=== PATIENT | female | born 1965 | race Caucasian/White ===

== ENCOUNTER 2019-11-14 06:04 | Inpatient (IN) ==
--- NOTE | 2019-11-07 10:05 | XRay Report ---
CLINICAL INFORMATION: Preop COMPARISON: None. TECHNIQUE: PA and Lateral views FINDINGS: The heart size, mediastinum and pulmonary vessels are unremarkable. The lungs are clear. There are no effusions. The bones and soft tissues are within normal limits. IMPRESSION: Normal chest. Interpreted and Authenticated by: Marvin Frazier 11/07/19
[2019-11-07 12:30] LABS: Basophils # (Auto) 0.06 K/mcL (0.00-0.30); Basophils % (Auto) 0.6 % (0.0-2.0); Eosinophils # (Auto) 0.09 K/mcL (0.00-0.70); Eosinophils % (Auto) 0.9 % (0.0-7.0); Granulocytes % (Auto) 45.9 % (38.0-78.0); Hematocrit 38.1 % (34.1-44.9); Hemoglobin 12.6 g/dL (11.2-15.7); Lymphocytes # (Auto) 4.43 K/mcL (1.50-4.80); Lymphocytes % (Auto) 46.4 % (15.5-49.0); Mean Cell Volume 85.8 fL (80.0-100.0); Mean Corpuscular HGB Conc 33.1 g/dL (31.0-36.0); Mean Platelet Volume 10.1 fL (7.4-10.4); Monocytes # (Auto) 0.59 K/mcL (0.10-0.90); Monocytes % (Auto) 6.2 % (1.0-12.0); Platelet Count 371 K/mcL (140-440); RBC 4.44 M/mcL (3.59-5.38); Red Cell Distribution Width 13.2 % (11.5-14.5); WBC 9.6 K/mcL (4.50-11.00)
[2019-11-07 12:40] LABS: INR 0.9 (0.9-1.1); Prothrombin Time 12.6 sec (11.9-14.5)
[2019-11-07 12:45] LABS: Estimated Average Glucose(eAG) 209 mg/dL; Hemoglobin A1C 8.9 % HGB (4.0-6.0)
[2019-11-07 13:00] LABS: ALT/SGPT 36 U/l (0-40); AST/SGOT 43 U/l (0-37); Albumin 4.5 gm/dL (3.2-5.2); Albumin/Globulin Ratio 1.6 (1.0-2.3); Alkaline Phosphatase 142 U/L (39-117); Bilirubin,Total 0.2 mg/dL (0.0-1.0); Blood Urea Nitrogen 4 mg/dl (6-20); Calcium 9.4 mg/dl (8.6-10.4); Carbon Dioxide 26 mmol/L (22-30); Chloride 100 mmol/L (96-108); Globulin 2.8 gm/dL (2.2-3.7); Glomerular Filtration Rate 98; Glucose 60 mg/dL (70-105); T4 (Thyroxine) 8.9 ug/dl (5.0-12.0)
[~2019-11-14 06:04] MED LIST: ceFAZolin 2 GM in DEXTROSE 5% IN WATER 50 ML IV SCH
[2019-11-14] MEDS ORDERED: DEXAMETHASONE 10 MG/ML VIAL IV ONE ×2 (07:30→13:30)
[2019-11-14] MEDS ORDERED: SUCCINYLCHOLINE 20 MG/ML ML IV ONE ×2 (07:30→13:30)
[2019-11-14] MEDS ORDERED: PROPOFOL 200 MG/20 ML VIAL IV ONE ×2 (07:30→13:30)
[2019-11-14] MEDS ORDERED: LIDOCAINE HCL/PF 100 MG/5 ML SYRINGE IV ONE ×2 (07:30→13:30)
[2019-11-14] MEDS ORDERED: ONDANSETRON 4 MG/2 ML VIAL IV ONE ×2 (07:30→13:30)
[2019-11-14] MEDS ORDERED: KETAMINE 100 MG/ML ML IV ONE ×2 (07:30→13:30)
[2019-11-14] MEDS ORDERED: ROCURONIUM 10 MG/ML ML IV ONE ×2 (07:30→13:30)
[2019-11-14] MEDS ORDERED: SUGAMMADEX SODIUM 200 MG/2 ML VIAL IV ONE (07:30)
[2019-11-14] MEDS ORDERED: fentaNYL 250 MCG/5 ML VIAL IV ONE (07:30)
[2019-11-14] MEDS ORDERED: IPRATROPIUM/ALBUTEROL 3 ML AMPUL.NEB NEB PRN ×3 (08:08→14:39)
[2019-11-14] MEDS ORDERED: METOPROLOL TARTRATE 5 MG/5 ML VIAL IV PRN ×2 (08:08→09:55)
[2019-11-14] MEDS ORDERED: ePHEDrine 50 MG/ML AMPUL IV PRN ×2 (08:08→09:55)
[2019-11-14] MEDS ORDERED: PROMETHAZINE 25 MG/ML VIAL IM PRN (08:08)
[2019-11-14] MEDS ORDERED: MEPERIDINE 25 MG/ML SYRINGE IV PRN ×3 (08:08→14:39)
[2019-11-14] MEDS ORDERED: ACETAMINOPHEN 1,000 MG/100 ML BOTTLE IV ONE (08:08)
[2019-11-14] MEDS ORDERED: diphenhydrAMINE 50 MG/ML VIAL IV PRN ×2 (08:08→09:55)
[2019-11-14] MEDS ORDERED: ATROPINE SULFATE 0.4 MG/ML VIAL IV PRN ×2 (08:08→09:55)
[2019-11-14] MEDS ORDERED: METHOCARBAMOL 1,000 MG/10 ML VIAL IV PRN ×3 (08:08→14:39)
[2019-11-14] MEDS ORDERED: MEPERIDINE 50 MG/ML INJECTION IM PRN ×2 (08:08→09:55)
[2019-11-14] MEDS ORDERED: NALOXONE HCL 0.4 MG/ML VIAL IV PRN ×3 (08:08→14:39)
[2019-11-14] MEDS ORDERED: PROMETHAZINE 25 MG/ML VIAL IV PRN ×5 (08:08→16:57)
[2019-11-14] MEDS ORDERED: ONDANSETRON 4 MG/2 ML VIAL IV PRN ×2 (08:08→09:55)
[2019-11-14] MEDS ORDERED: KETOROLAC 30 MG/ML VIAL IV PRN ×2 (08:08→09:55)
[2019-11-14] MEDS ORDERED: HYDROmorphone 0.5 MG/0.5 ML SYRINGE IV PRN ×3 (08:08→09:55)
[2019-11-14] MEDS ORDERED: LACTATED RINGERS 1,000 ML IV SCH ×3 (08:15→14:45)
--- NOTE | 2019-11-14 08:57 | Brief Operative Note ---
Date of procedure: 11/14/19 Pre-op diagnosis: cholelithiasis with cholecystitis Post-op diagnosis: other (cholelithiasis with cholecystitis) Procedure: laparoscopic cholecystitis Grafts/Implants: No (billy drain ) Anesthesia: GETA Findings: dilated gallbladder Complications: none Surgeon: Cyn Saldivar Specimens Removed/Pathology: other (gallbladder) Condition: stable Disposition: PACU
[2019-11-14] MEDS ORDERED: CYCLOBENZAPRINE (PP) 10 MG TABLET PO PRN (09:07)
[2019-11-14] MEDS: fentaNYL 100 MCG/2 ML VIAL IV PRN ×3 (09:24→09:38)
[2019-11-14] MEDS ORDERED: ceFAZolin 2 GM in DEXTROSE 5% IN WATER 50 ML IV SCH (09:55)
[2019-11-14] MEDS ORDERED: 0.9 % SODIUM CHLORIDE 1,000 ML IV SCH (09:55)
[2019-11-14] MEDS ORDERED: CYCLOBENZAPRINE 10 MG TABLET PO PRN (09:55)
[2019-11-14] MEDS ORDERED: fentaNYL 100 MCG/2 ML VIAL IV PRN ×2 (09:55→14:39)
[2019-11-14] MEDS ORDERED: INSULIN LISPRO 1 UNIT/0.01 ML UNIT SQ SCH (11:30)
[2019-11-14] MEDS ORDERED: KETOROLAC 30 MG/ML VIAL IV SCH (12:00)
[2019-11-14] MEDS ORDERED: 0.9 % SODIUM CHLORIDE 250 ML IV SCH ×3 (12:45→16:57)
[2019-11-14] MEDS ORDERED: 0.9 % SODIUM CHLORIDE 1,000 ML IV ONE (12:47)
[2019-11-14] MEDS ORDERED: MIDAZOLAM 2 MG/2 ML VIAL IV ONE (13:30)
[2019-11-14] MEDS ORDERED: TRANEXAMIC ACID 1,000 MG/10 ML VIAL IV ONE (13:30)
[2019-11-14] MEDS ORDERED: HETASTARCH 6% 500 ML BAG IV ONE (13:30)
[2019-11-14] MEDS ORDERED: GLYCOPYRROLATE 0.2 MG/ML VIAL IV ONE (13:30)
[2019-11-14] MEDS ORDERED: PHENYLEPHRINE 10 MG/ML VIAL IV ONE (13:30)
[2019-11-14] MEDS ORDERED: fentaNYL 100 MCG/2 ML VIAL IV ONE (13:30)
[2019-11-14] MEDS ORDERED: 0.9 % SODIUM CHLORIDE 10 ML SYRINGE IV SCH (14:00)
--- NOTE | 2019-11-14 14:22 | Brief Operative Note ---
Date of procedure: 11/14/19 Pre-op diagnosis: post operative hemorrhage Post-op diagnosis: other (hemorrhage from cystic artery branch) Procedure: diagnostic laparoscopy with control of postoperative hemorrhage from cystic duct remnant Grafts/Implants: No Anesthesia: GETA Findings: large volume clot in subhepatic space with bleeding from cystic artery stump; no clips on cystic artery but lying free in subhepatic space Complications: other (cystic artery hemorrhage) Surgeon: Cyn Saldivar Estimated blood loss (cc): 250 Specimens Removed/Pathology: none sent Condition: stable Disposition: PACU
[2019-11-14] MEDS ORDERED: BENZOCAINE/MENTHOL 1 LOZENGE PO PRN (14:39)
[2019-11-14] MEDS ORDERED: LACTATED RINGERS 250 ML IV PRN (14:39)
[2019-11-14] MEDS ORDERED: FLUMAZENIL 0.1 MG/ML ML IV PRN (14:39)
--- NOTE | 2019-11-14 14:40 | General Surgery Progress Note ---
Subjective Patient reports: other (patient had persistent hypotension with systolic pressure in 60 range . she responded poorly to bolus of 1000 ccc of ns;. she had large volume of fresh blood via her drain , . advised patient that she needed emergency re-exploration . She was T&C for blood and taken immediately to OR for emergency laparoscopy. ) Narrative: Note initiated : 11/14/19 at 2:35 pm Service Date, if different from initiated Date: [] Patient: Gena Ordoñez 54 y/o F admitted on for Diagnostic Laparoscopy Possible Open. Chief Complaint: [] Objective Temp Pulse Resp BP Pulse Ox 98.1 F 99 H 15 108/59 96 11/14/19 14:28 11/14/19 14:30 11/14/19 14:30 11/14/19 14:30 11/14/19 14:30 - Additional Data Intake & Output - Last 24 hours: Intake & Output 11/12/19 11/13/19 11/14/19 11/15/19 05:59 05:59 05:59 05:59 Intake Total 2500 Output Total 1530 Balance 970 Weight 173 lb 6.4 oz - Labs 11/07/19 09:49 11/07/19 09:49 Assessment and Plan - Time Spent With Patient Total time spent is greater than 50% in coordination of care (as documented) at patient's floor/unit and/or counseling patient:
[2019-11-14 14:41] LABS: Basophils # (Auto) 0.04 K/mcL (0.00-0.30); Basophils % (Auto) 0.3 % (0.0-2.0); Eosinophils # (Auto) 0.03 K/mcL (0.00-0.70); Eosinophils % (Auto) 0.2 % (0.0-7.0); Hematocrit 28.3 % (34.1-44.9); Hemoglobin 9.4 g/dL (11.2-15.7); Lymphocytes # (Auto) 1.52 K/mcL (1.50-4.80); Mean Cell Volume 86.8 fL (80.0-100.0); Mean Corpuscular HGB Conc 33.2 g/dL (31.0-36.0); Mean Platelet Volume 11.3 fL (7.4-10.4); Monocytes # (Auto) 0.69 K/mcL (0.10-0.90); Monocytes % (Auto) 4.5 % (1.0-12.0); Platelet Count 233 K/mcL (140-440); RBC 3.26 M/mcL (3.59-5.38); Red Cell Distribution Width 13.2 % (11.5-14.5); WBC 15.2 K/mcL (4.50-11.00)
[2019-11-14] MEDS ORDERED: ACETAMINOPHEN 1,000 MG/100 ML BOTTLE IV SCH (15:00)
[2019-11-14 17:29] LABS: Hematocrit 23.7 % (34.1-44.9); Hemoglobin 7.6 g/dL (11.2-15.7)
[2019-11-14] MEDS: INSULIN LISPRO 1 UNIT/0.01 ML UNIT SQ SCH ×2 (17:54→21:20)
[2019-11-14] MEDS: HYDROmorphone 0.5 MG/0.5 ML SYRINGE IV PRN (17:55)
[2019-11-14] MEDS: KETOROLAC 30 MG/ML VIAL IV SCH (18:54)
[2019-11-14] MEDS: 0.9 % SODIUM CHLORIDE 1,000 ML IV SCH (21:00)
[2019-11-14] MEDS ORDERED: PREGABALIN 50 MG PO SCH (21:00)
[2019-11-14] MEDS ORDERED: PREGABALIN 25 MG CAPSULE PO SCH (21:00)
[2019-11-14] MEDS: 0.9 % SODIUM CHLORIDE 10 ML SYRINGE IV SCH (21:10)
[2019-11-14] MEDS: PREGABALIN 25 MG CAPSULE PO SCH (21:19)
[2019-11-14] MEDS: ACETAMINOPHEN 1,000 MG/100 ML BOTTLE IV SCH (21:21)
[2019-11-14 23:29] LABS: Hematocrit 29.9 % (34.1-44.9); Hemoglobin 9.9 g/dL (11.2-15.7)
[2019-11-15] MEDS: HYDROmorphone 0.5 MG/0.5 ML SYRINGE IV PRN ×3 (00:16→05:58)
[2019-11-15] MEDS: KETOROLAC 30 MG/ML VIAL IV SCH ×4 (00:17→19:52)
[2019-11-15] MEDS: ACETAMINOPHEN 1,000 MG/100 ML BOTTLE IV SCH ×2 (03:12→09:24)
[2019-11-15] MEDS: 0.9 % SODIUM CHLORIDE 10 ML SYRINGE IV SCH ×3 (05:01→21:15)
[2019-11-15 06:35] LABS: Basophils # (Auto) 0.02 K/mcL (0.00-0.30); Basophils % (Auto) 0.2 % (0.0-2.0); Eosinophils # (Auto) 0.03 K/mcL (0.00-0.70); Eosinophils % (Auto) 0.3 % (0.0-7.0); Hematocrit 29.5 % (34.1-44.9); Hemoglobin 9.8 g/dL (11.2-15.7); Lymphocytes # (Auto) 1.99 K/mcL (1.50-4.80); Lymphocytes % (Auto) 17.8 % (15.5-49.0); Mean Cell Volume 86.8 fL (80.0-100.0); Mean Corpuscular HGB Conc 33.2 g/dL (31.0-36.0); Mean Platelet Volume 9.8 fL (7.4-10.4); Monocytes # (Auto) 0.75 K/mcL (0.10-0.90); Monocytes % (Auto) 6.7 % (1.0-12.0); Platelet Count 210 K/mcL (140-440); Red Cell Distribution Width 13.6 % (11.5-14.5); WBC 11.2 K/mcL (4.50-11.00)
[2019-11-15 07:05] LABS: ALT/SGPT 152 U/l (0-40); AST/SGOT 296 U/l (0-37); Albumin 2.8 gm/dL (3.2-5.2); Alkaline Phosphatase 121 U/L (39-117); Bilirubin,Direct 0.3 mg/dL (0.0-0.3); Carbon Dioxide 23 mmol/L (22-30); Chloride 104 mmol/L (96-108); Glomerular Filtration Rate 103; Glucose 125 mg/dL (70-105); Lactate Dehydrogenase 347 U/L (94-250); Triglycerides 83 mg/dl (<150); Uric Acid 5.1 mg/dL (2.5-8.0)
[2019-11-15 07:08] LABS: Albumin/Globulin Ratio 1.5 (1.0-2.3); Blood Urea Nitrogen 9 mg/dl (6-20); Calcium 7.5 mg/dl (8.6-10.4); Globulin 1.9 gm/dL (2.2-3.7)
[2019-11-15] MEDS: INSULIN LISPRO 1 UNIT/0.01 ML UNIT SQ SCH ×4 (07:35→21:24)
[2019-11-15] MEDS ORDERED: HYDROmorphone 0.5 MG/0.5 ML SYRINGE IV PRN (08:27)
[2019-11-15] MEDS ORDERED: MAGNESIUM SULFATE 4 GM/100 ML BAG IV ONE (09:00)
[2019-11-15] MEDS: PREGABALIN 25 MG CAPSULE PO SCH ×2 (09:21→21:13)
[2019-11-15] MEDS: HYDROmorphone 1 MG/ML SYRINGE IV PRN ×3 (09:48→19:52)
[2019-11-15] MEDS: 0.9 % SODIUM CHLORIDE 1,000 ML IV SCH (10:34)
--- NOTE | 2019-11-15 11:23 | General Surgery Progress Note ---
Subjective Patient reports: feels better, still having pain, pain is less, tolerating liquids well, flatus, no bowel movement, afebrile Narrative: Note initiated : 11/15/19 at 11:21 am Service Date, if different from initiated Date: [] Patient: Gena Ordoñez 54 y/o F admitted on 11/15/19 for Diagnostic Laparoscopy Possible Open. Chief Complaint: [patient is doing well. Her pain is decreased. Hemoglobin has remained stable overnight. CARISSA drainage is bloody but only 160 cc. White blood count 11.2, hemoglobin 9.8, hematocrit 29.5, potassium 4.3 BUN 9, creatinine 0.6, magnesium 1.5, bilirubin 1.] Objective Temp Pulse Resp BP Pulse Ox 96.5 F L 86 16 93/61 93 11/15/19 08:00 11/15/19 08:00 11/15/19 08:00 11/15/19 08:00 11/15/19 08:00 - Additional Data Intake & Output - Last 24 hours: Intake & Output 11/13/19 11/14/19 11/15/19 11/16/19 05:59 05:59 05:59 05:59 Intake Total 6275 2100 Output Total 4890 Balance 1385 2100 Weight 173 lb 6.4 oz - General physical appearance well developed, well nourished, no distress - Eyes PERRL, normal ocular movement - ENT normal pinna, normal nares, normal mucosa, no hearing loss, no congestion - Neck no masses, no bruits, trachea midline, no lymphadenopathy, no venous distension - Respiratory normal expansion, normal respiratory effort, clear to percussion, clear to auscultation - Cardiovascular Cardiovascular exam: Present: normal rate and rhythm, RRR, +S1, +S2. Absent: JVD, tachycardia - Abdomen tender (mild tenderness over operative sites), bowel sounds (present), surgical scars (none), masses (none) - Integumentary no rash, no growths, no abnormal pigmentation - Neurologic normal coordination, normal sensation - Musculoskeletal normal gait, normal posture - Psychiatric oriented to time, oriented to person, oriented to place, speech is normal, memory intact - Labs 11/15/19 05:26 11/15/19 05:26 Diabetes panel 11/15/19 Range/Units 05:26 Sodium 136 (133-145) mmol/L Potassium 4.3 (3.3-5.1) mmol/L Chloride 104 (96-108) mmol/L Carbon Dioxide 23 (22-30) mmol/L BUN 9 (6-20) mg/dl Creatinine 0.6 (0.6-1.1) mg/dl Glucose 125 H (70-105) mg/dL Calcium 7.5 L (8.6-10.4) mg/dl AST 296 H (0-37) U/l ALT 152 H (0-40) U/l Alkaline Phosphatase 121 H (39-117) U/L Total Protein 4.7 L (5.9-8.4) gm/dL Albumin 2.8 L (3.2-5.2) gm/dL Triglycerides 83 (<150) mg/dl Calcium panel 11/15/19 Range/Units 05:26 Calcium 7.5 L (8.6-10.4) mg/dl Phosphorus 3.0 (2.7-4.5) mg/dL Albumin 2.8 L (3.2-5.2) gm/dL Pituitary panel 11/15/19 Range/Units 05:26 Sodium 136 (133-145) mmol/L Potassium 4.3 (3.3-5.1) mmol/L Chloride 104 (96-108) mmol/L Carbon Dioxide 23 (22-30) mmol/L BUN 9 (6-20) mg/dl Creatinine 0.6 (0.6-1.1) mg/dl Glucose 125 H (70-105) mg/dL Calcium 7.5 L (8.6-10.4) mg/dl Adrenal panel 11/15/19 Range/Units 05:26 Sodium 136 (133-145) mmol/L Potassium 4.3 (3.3-5.1) mmol/L Chloride 104 (96-108) mmol/L Carbon Dioxide 23 (22-30) mmol/L BUN 9 (6-20) mg/dl Creatinine 0.6 (0.6-1.1) mg/dl Glucose 125 H (70-105) mg/dL Calcium 7.5 L (8.6-10.4) mg/dl Total Bilirubin 1.0 (0.0-1.0) mg/dL AST 296 H (0-37) U/l ALT 152 H (0-40) U/l Alkaline Phosphatase 121 H (39-117) U/L Total Protein 4.7 L (5.9-8.4) gm/dL Albumin 2.8 L (3.2-5.2) gm/dL Assessment and Plan (1) Cholelithiasis and cholecystitis without obstruction Status: Acute Current Visit: Yes (2) Postoperative hemorrhage Status: Acute Assessment and plan: Hemoglobin has remained stable for the past 12 hours Current Visit: Yes - Time Spent With Patient Total time spent is greater than 50% in coordination of care (as documented) at patient's floor/unit and/or counseling patient:
--- NOTE | 2019-11-15 11:56 | Surgical Pathology Report ---
HISTOLOGY SPECIMEN MICROSCOPIC DIAGNOSIS GALLBLADDER, CHOLECYSTECTOMY: -- CHRONIC CHOLECYSTITIS WITH CHOLELITHIASIS. (RLF:sln) PROCEDURAL IMPRESSION Calculus of bile duct. GROSS DESCRIPTION Received in formalin designated gallbladder, is a purple-rubio gallbladder that measures 10.8 x 4.4 x 2.1 cm. There are multiple metal clips identified, including one on the cystic duct. The mucosa is pink-panchal and velvety and the wall is up to 0.2 cm thick. Within the specimen, there is a 0.3 cm in greatest dimension black stone. It Applications Analyst sections submitted - one cassette. (SCB:sln) Electronically Signed by: Salina Leyva M.D.
[2019-11-15 15:17] LABS: Hematocrit 29.4 % (34.1-44.9)
[2019-11-15] MEDS: CYCLOBENZAPRINE 10 MG TABLET PO PRN (21:19)
[2019-11-16] MEDS: KETOROLAC 30 MG/ML VIAL IV SCH ×4 (00:09→23:10)
[2019-11-16] MEDS: 0.9 % SODIUM CHLORIDE 1,000 ML IV SCH ×2 (02:22→08:32)
[2019-11-16] MEDS: HYDROmorphone 1 MG/ML SYRINGE IV PRN ×4 (02:26→11:34)
[2019-11-16] MEDS: 0.9 % SODIUM CHLORIDE 10 ML SYRINGE IV SCH ×3 (05:49→23:00)
[2019-11-16 06:37] LABS: Basophils # (Auto) 0.04 K/mcL (0.00-0.30); Basophils % (Auto) 0.4 % (0.0-2.0); Eosinophils # (Auto) 0.12 K/mcL (0.00-0.70); Eosinophils % (Auto) 1.3 % (0.0-7.0); Granulocytes % (Auto) 65.3 % (38.0-78.0); Hematocrit 29.2 % (34.1-44.9); Hemoglobin 9.7 g/dL (11.2-15.7); Lymphocytes # (Auto) 2.48 K/mcL (1.50-4.80); Mean Cell Volume 88.2 fL (80.0-100.0); Mean Corpuscular HGB Conc 33.2 g/dL (31.0-36.0); Mean Platelet Volume 10.1 fL (7.4-10.4); Monocytes # (Auto) 0.55 K/mcL (0.10-0.90); Platelet Count 191 K/mcL (140-440); RBC 3.31 M/mcL (3.59-5.38); Red Cell Distribution Width 14.2 % (11.5-14.5); WBC 9.2 K/mcL (4.50-11.00)
[2019-11-16] MEDS: INSULIN LISPRO 1 UNIT/0.01 ML UNIT SQ SCH ×4 (07:34→21:32)
[2019-11-16] MEDS: PREGABALIN 25 MG CAPSULE PO SCH ×2 (08:33→21:06)
[2019-11-16 09:10] LABS: ALT/SGPT 88 U/l (0-40); AST/SGOT 91 U/l (0-37); Albumin 2.8 gm/dL (3.2-5.2); Albumin/Globulin Ratio 1.3 (1.0-2.3); Alkaline Phosphatase 138 U/L (39-117); Bilirubin,Total 0.4 mg/dL (0.0-1.0); Blood Urea Nitrogen 6 mg/dl (6-20); Calcium 7.5 mg/dl (8.6-10.4); Carbon Dioxide 25 mmol/L (22-30); Chloride 102 mmol/L (96-108); Globulin 2.2 gm/dL (2.2-3.7); Glomerular Filtration Rate 103; Glucose 145 mg/dL (70-105); Lactate Dehydrogenase 215 U/L (94-250); Triglycerides 128 mg/dl (<150); Uric Acid 4.8 mg/dL (2.5-8.0)
[2019-11-16 09:12] LABS: Bilirubin,Direct < 0.2 mg/dL (0.0-0.3); Phosphorous 2.3 mg/dL (2.7-4.5)
[2019-11-16] MEDS ORDERED: HYDROmorphone 0.5 MG/0.5 ML SYRINGE IV PRN (11:45)
[2019-11-16] MEDS ORDERED: FUROSEMIDE 40 MG/4 ML VIAL IV ONE (13:33)
--- NOTE | 2019-11-16 13:38 | General Surgery Progress Note ---
Subjective Patient reports: feels better, pain is less, flatus, bowel movement, afebrile Narrative: Note initiated : 11/16/19 at 1:35 pm Service Date, if different from initiated Date: [] Patient: Gena Ordoñez 54 y/o F admitted on 11/15/19 for Diagnostic Laparoscopy Possible Open. Chief Complaint: [patient feels much better. However, she was noted to have low oxygen saturations. When monitored off oxygen. Her saturations are in the 80- 84% range. Examination reveals diffuse rales of her entire lung field sugg esting pulmonary edema. White blood count 9.2, hemoglobin 9.7, hematocrit 29.2] Objective Temp Pulse Resp BP Pulse Ox 98.0 F 118 H 18 98/63 90 11/16/19 08:00 11/16/19 08:00 11/16/19 08:00 11/16/19 08:00 11/16/19 08:00 - Additional Data Intake & Output - Last 24 hours: Intake & Output 11/14/19 11/15/19 11/16/19 11/17/19 05:59 05:59 05:59 05:59 Intake Total 6355 5780 200 Output Total 4890 4030 800 Balance 1465 1750 -600 Weight 173 lb 6.4 oz 174 lb - General physical appearance well developed, well nourished, no distress - Eyes PERRL, normal ocular movement - ENT normal pinna, normal nares, normal mucosa, no hearing loss, no congestion - Neck no masses, no bruits, trachea midline, no lymphadenopathy, no venous distension - Respiratory other (diffuse rales bilaterally) - Cardiovascular Cardiovascular exam: Present: normal rate and rhythm (`) - Abdomen non tender, bowel sounds (present), surgical scars (none), masses (none) - Integumentary no rash, no growths, no abnormal pigmentation - Neurologic normal coordination, normal sensation - Musculoskeletal normal gait, normal posture - Psychiatric oriented to time, oriented to person, oriented to place, speech is normal, me bertha intact - Labs 11/16/19 05:38 11/16/19 07:52 Diabetes panel 11/16/19 Range/Units 07:52 Sodium 138 (133-145) mmol/L Potassium 4.2 (3.3-5.1) mmol/L Chloride 102 (96-108) mmol/L Carbon Dioxide 25 (22-30) mmol/L BUN 6 (6-20) mg/dl Creatinine 0.6 (0.6-1.1) mg/dl Glucose 145 H (70-105) mg/dL Calcium 7.5 L (8.6-10.4) mg/dl AST 91 H (0-37) U/l ALT 88 H (0-40) U/l Alkaline Phosphatase 138 H (39-117) U/L Total Protein 5.0 L (5.9-8.4) gm/dL Albumin 2.8 L (3.2-5.2) gm/dL Triglycerides 128 (<150) mg/dl Calcium panel 11/16/19 Range/Units 07:52 Calcium 7.5 L (8.6-10.4) mg/dl Phosphorus 2.3 L (2.7-4.5) mg/dL Albumin 2.8 L (3.2-5.2) gm/dL Pituitary panel 11/16/19 Range/Units 07:52 Sodium 138 (133-145) mmol/L Potassium 4.2 (3.3-5.1) mmol/L Chloride 102 (96-108) mmol/L Carbon Dioxide 25 (22-30) mmol/L BUN 6 (6-20) mg/dl Creatinine 0.6 (0.6-1.1) mg/dl Glucose 145 H (70-105) mg/dL Calcium 7.5 L (8.6-10.4) mg/dl Adrenal panel 11/16/19 Range/Units 07:52 Sodium 138 (133-145) mmol/L Potassium 4.2 (3.3-5.1) mmol/L Chloride 102 (96-108) mmol/L Carbon Dioxide 25 (22-30) mmol/L BUN 6 (6-20) mg/dl Creatinine 0.6 (0.6-1.1) mg/dl Glucose 145 H (70-105) mg/dL Calcium 7.5 L (8.6-10.4) mg/dl Total Bilirubin 0.4 (0.0-1.0) mg/dL AST 91 H (0-37) U/l ALT 88 H (0-40) U/l Alkaline Phosphatase 138 H (39-117) U/L Total Protein 5.0 L (5.9-8.4) gm/dL Albumin 2.8 L (3.2-5.2) gm/dL Assessment and Plan (1) Cholelithiasis and cholecystitis without obstruction Status: Acute Current Visit: Yes (2) Postoperative hemorrhage Status: Acute Assessment and plan: Hemoglobin has remained stable for the past 12 hours Current Visit: Yes - Time Spent With Patient Total time spent is greater than 50% in coordination of care (as documented) at patient's floor/unit and/or counseling patient:
--- NOTE | 2019-11-16 14:31 | XRay Report ---
HISTORY: Pulmonary edema FINDINGS: There is a thick vertically oriented band of discoid atelectasis medially in the right lower lobe extending from the hilum down to the diaphragm. There is a small band of atelectasis posteriorly and medially in the left lower lobe. These are both new since prior chest x-ray done on 11/07/19. There is no pulmonary edema or pleural effusion. The heart size is normal. There are two spinal electrodes, one in the upper and the other in the lower thoracic spine. IMPRESSION: New onset atelectasis in both lower lobes Interpreted and Authenticated by: Cole Tsai 11/16/19
[2019-11-16] MEDS ORDERED: ACETAMINOPHEN 325 MG TABLET PO PRN (14:56)
[2019-11-16] MEDS: BUTALB/ACETAMINOPHEN/CAFFEINE 1 TABLET PO PRN (16:31)
[2019-11-16] MEDS: CYCLOBENZAPRINE 10 MG TABLET PO PRN (19:37)
[2019-11-16] MEDS: oxyCODONE HCL 5 MG TABLET PO PRN (21:07)
[2019-11-17] MEDS: oxyCODONE HCL 5 MG TABLET PO PRN (03:40)
[2019-11-17] MEDS: KETOROLAC 30 MG/ML VIAL IV SCH ×2 (06:07→12:19)
[2019-11-17] MEDS: 0.9 % SODIUM CHLORIDE 10 ML SYRINGE IV SCH (06:08)
[2019-11-17 06:38] LABS: Basophils # (Auto) 0.03 K/mcL (0.00-0.30); Basophils % (Auto) 0.5 % (0.0-2.0); Eosinophils % (Auto) 3.1 % (0.0-7.0); Granulocytes % (Auto) 54.1 % (38.0-78.0); Hematocrit 30.6 % (34.1-44.9); Lymphocytes # (Auto) 2.27 K/mcL (1.50-4.80); Lymphocytes % (Auto) 35.7 % (15.5-49.0); Mean Cell Volume 89.2 fL (80.0-100.0); Mean Corpuscular HGB Conc 32.7 g/dL (31.0-36.0); Monocytes # (Auto) 0.42 K/mcL (0.10-0.90); Monocytes % (Auto) 6.6 % (1.0-12.0); Platelet Count 210 K/mcL (140-440); RBC 3.43 M/mcL (3.59-5.38); Red Cell Distribution Width 13.9 % (11.5-14.5); WBC 6.4 K/mcL (4.50-11.00)
[2019-11-17] MEDS ORDERED: oxyCODONE HCL 5 MG TABLET PO PRN (07:03)
[2019-11-17 08:19] LABS: ALT/SGPT 74 U/l (0-40); AST/SGOT 76 U/l (0-37); Albumin 2.8 gm/dL (3.2-5.2); Albumin/Globulin Ratio 1.2 (1.0-2.3); Alkaline Phosphatase 195 U/L (39-117); Bilirubin,Total 0.6 mg/dL (0.0-1.0); Blood Urea Nitrogen 6 mg/dl (6-20); Calcium 7.6 mg/dl (8.6-10.4); Carbon Dioxide 29 mmol/L (22-30); Chloride 98 mmol/L (96-108); Globulin 2.4 gm/dL (2.2-3.7); Glomerular Filtration Rate 110; Glucose 164 mg/dL (70-105)
[2019-11-17] MEDS: INSULIN LISPRO 1 UNIT/0.01 ML UNIT SQ SCH ×2 (08:21→12:18)
[2019-11-17] MEDS: PREGABALIN 25 MG CAPSULE PO SCH (08:22)
[2019-11-17] MEDS: BUTALB/ACETAMINOPHEN/CAFFEINE 1 TABLET PO PRN (10:32)
--- NOTE | 2019-11-17 11:44 | Discharge Summary ---
Providers - Providers Patient information: Note initiated : 11/17/19 at 11:44 am Service Date, if different from initiated Date: [] Patient: Gena Ordoñez 54 y/o F admitted on 11/15/19 for Diagnostic Laparoscopy Possible Open. Chief Complaint: [] Date of admission: 11/14/19 Discharge date: 11/17/19 Attending physician: Cyn Saldivar Hospitalization Hospital Course: 54-year-old female with history of cholelithiasis with cholecystitis. She underwent laparoscopic cholecystectomy on 13 November. In the PACU she had decreased in blood pressure which initially responded to increase IV fluids. When she returned to the floor. Her blood pressure was 60 systolic and it was noted that she had increased bright red blood through her CARISSA drains. Her abdomen was also distended. She was given 2 L normal saline and blood was typed and cross. She was taken to the OR and reexplored. At laparoscopy, she was found to have a free bleeding from her cystic duct remnant, even though of 3 clips had been placed previously. The clips were not adequately compressed and it is felt that they simply fell off the remnant. The duct was clipped with 5 clips. The remainder in blood was irrigated and the clot was extracted. The area was monitored for about 10 minutes and no more bleeding was noted. She received 2 units of packed red cells after her hemoglobin returned at 7.4.Hemoglobin has remained stable from 9.4-10 . She did have some atelectasis and hypoxemia on yesterday requiring O2. She was given 40 Lasix and she responded appropriately. Her oxygen saturation is now 95%. She still has some bloody drainage her drain but is otherwise stable. She is clinically stable for discharge home. Discharge diagnosis: cholelithiasis with cholecystitis Secondary discharge diagnosis: Postoperative hemorrhage from cystic duct Remnant. Acute pulmonary congestion with hypoxemia, treated, resolved. Acute blood loss anemia, stable Reason for admission: cholelithiasis with cholecystitis Procedures: laparoscopic cholecystectomy. Diagnostic laparoscopy with control of hemorrhage from cystic duct Pertinent studies/significant findings: None Complications: Postoperative bleeding from cystic duct Exam Temp Pulse Resp BP Pulse Ox 97.5 F 79 18 106/65 96 11/17/19 03:43 11/17/19 03:43 11/17/19 03:43 11/17/19 03:43 11/17/19 03:43 - General physical appearance well developed, well nourished, no distress - Eyes PERRL, normal ocular movement - ENT normal pinna, normal nares, normal mucosa, no hearing loss, no congestion - Head Head exam IM: Present: atraumatic, normocephalic - Neck no masses, no bruits, trachea midline, no lymphadenopathy, no venous distension - Cardiovascular Cardiovascular exam IM: Present: normal rate and rhythm - Respiratory normal expansion, normal respiratory effort, clear to auscultation, other (lungs clear without evidence of rales, rhonchi, wheezes) - Abdomen Abdomen: Present: soft, non tender, bowel sounds Hernia: Present: none - Genitourinary Present: normal external genitalia - Integumentary Present: no rash, no growths, no abnormal pigmentation - Neurologic Present: normal coordination, normal sensation - Musculoskeletal Present: normal gait, normal posture - Psychiatric Present: oriented to time, oriented to person, oriented to place, speech is normal, memory intact Discharge Plan - Patient/Caregiver Discharge Instructions Activity: increase activity as tolerated Diet: Regular Diet Additional Instructions: Have dressings changed in office as needed Prescriptions: RX: Butalb/Acetaminophen/Caffeine [Fioricet] 2 tab PO Q4HP PRN #30 tab PRN Reason: Headache Transmission Status: Pending to [facility] RX: oxyCODONE/APAP [Percocet 5-325 mg] 1 tab PO Q4HP PRN #40 tab PRN Reason: Pain Transmission Status: Received by [facility] - Follow up Plan Follow up with: Cyn Saldivar MD [Physician] - 11/29/19 8:00 am Disposition: Home, Self-Care Plan of Treatment: Dressings may be changed in office as needed Prognosis: Good Rehab Potential: Good I certify that the patient requires SNF services.: No Overall status at discharge: patient is progressing back to baseline Pending Studies Resuscitation Status Full Code Diet Low Fat Diet Start Rocio November 14 0825 Acetaminophen/Butalbital/Caffeine (Fioricet) 2 tab PO Q4HP PRN PRN Reason: Headache Last Admin: 11/17/19 10:32 Dose: 2 tab Documented by: Admin: 11/16/19 16:31 Dose: 2 tab Documented by: LORRAINE Cyclobenzaprine HCl (Flexeril) 10 - 20 mg PO DAILYP PRN PRN Reason: muscle spasm Last Admin: 11/16/19 19:37 Dose: 10 mg Documented by: Admin: 11/15/19 21:19 Dose: 10 mg Documented by: SHARON Diagnostic Test (Pha) (Accu-Chek) 1 each FS [facility]; Protocol Last Admin: 11/17/19 08:21 Dose: 1 each Documented by: Admin: 11/16/19 21:32 Dose: 1 each Documented by: Admin: 11/16/19 16:30 Dose: 1 each Documented by: Admin: 11/16/19 11:13 Dose: 1 each Documented by: Admin: 11/16/19 07:29 Dose: 1 each Documented by: Admin: 11/15/19 21:20 Dose: 1 each Documented by: Admin: 11/15/19 16:42 Dose: 1 each Documented by: Admin: 11/15/19 11:41 Dose: 1 each Documented by: Admin: 11/15/19 07:15 Dose: 1 each Documented by: Admin: 11/14/19 21:09 Dose: 1 each Documented by: Admin: 11/14/19 17:37 Dose: 1 each Documented by: [email or web address] Hydromorphone HCl (Dilaudid) 0.5 - 1 mg IV Q2HP PRN; Protocol PRN Reason: Per Pain Protocol Last Admin: 11/16/19 23:00 Dose: 0.5 mg Documented by: SHARON Insulin Human Lispro (Humalog) 0 unit SQ [facility]; Protocol Last Admin: 11/17/19 08:21 Dose: 2 units Documented by: Admin: 11/16/19 21:32 Dose: Not Given Documented by: Admin: 11/16/19 16:35 Dose: 2 units Documented by: Admin: 11/16/19 11:14 Dose: Not Given Documented by: Admin: 11/16/19 07:34 Dose: 2 units Documented by: Admin: 11/15/19 21:24 Dose: 6 units Documented by: Admin: 11/15/19 17:34 Dose: 6 units Documented by: Admin: 11/15/19 11:42 Dose: Not Given Documented by: Admin: 11/15/19 07:35 Dose: 2 units Documented by: Admin: 11/14/19 21:20 Dose: 6 units Documented by: Admin: 11/14/19 17:54 Dose: 6 units Documented by: [email or web address] Ketorolac Tromethamine (Toradol) 30 mg IV Q6 [facility] Stop: 11/17/19 12:01 Last Admin: 11/17/19 06:07 Dose: 30 mg Documented by: Admin: 11/16/19 23:10 Dose: 30 mg Documented by: Admin: 11/16/19 17:14 Dose: 30 mg Documented by: LORRAINE Oxycodone HCl (Roxicodone) 10 mg PO Q4HP PRN; Protocol PRN Reason: Per Pain Protocol Last Admin: 11/17/19 08:22 Dose: 10 mg Documented by: KEAGAN Pregabalin (Lyrica) 50 mg PO BID [facility] Last Admin: 11/17/19 08:22 Dose: 50 mg Documented by: Admin: 11/16/19 21:06 Dose: 50 mg Documented by: Admin: 11/16/19 08:33 Dose: 50 mg Documented by: Admin: 11/15/19 21:13 Dose: 50 mg Documented by: Admin: 11/15/19 09:21 Dose: 50 mg Documented by: Admin: 11/14/19 21:19 Dose: 50 mg Documented by: SHARON Sodium Chloride (Saline Flush) 10 ml IV Q8 [facility] Last Admin: 11/17/19 06:08 Dose: 10 ml Documented by: Admin: 11/16/19 23:00 Dose: 10 ml Documented by: Admin: 11/16/19 15:06 Dose: 10 ml Documented by: Admin: 11/16/19 05:49 Dose: Not Given Documented by: Admin: 11/15/19 21:15 Dose: Not Given Documented by: Admin: 11/15/19 14:00 Dose: 10 ml Documented by: Admin: 11/15/19 05:01 Dose: Not Given Documented by: Admin: 11/14/19 21:10 Dose: Not Given Documented by: SHARON Shift Summary 11/17/19 05:09 Shift Summary by Tonia Riggs The patient is alert and oriented times four, she is up to void via restroom with 1 SBA voiding quantity sufficient post Lasix given yesterday for suspected pulmonary edema/rales. She has four lap sites with Tegaderm CDI and her abdominal dressing where the CARISSA insertion site is was changed twice during the shift, her CARISSA had 30 ml output. She has denied nausea, took crackers with her PO Roxicodone and Fiorcet for abdominal and headache pain and received Dilaudid once for breakthrough pain. Her IV is SL to her left wrist, yesterday her Hgb was 10 and Hct 29.4 and she has orders to keep ahead 2 units PRBCs if needed to transfuse for a Hgb less than 9. She is passing flatus and states she feels much better last evening than days prior and is wishing to D/C home with her spouse when MD allows. She has a spinal cord stimulator implanted with the remote control pad at bedside, gordy ramirez on bilaterally, using her I/S while awake to 2,000 and encouraged coughing and deep breathing with splinting her abdomen. She has remained on 2 LPM N/C while asleep and maintained her Sp02>90% with a continuous pulse oximeter at bedside, when asleep on room air she desaturated to 84%, other VS WDL and runs low normotensive 110s/60s for baseline. Will update shift summary report at bedside. Initialized on 11/17/19 05:09 - END OF NOTE
--- NOTE | 2019-11-20 12:19 | Operative Note ---
DATE OF OPERATION: 11/15/2019 DATE OF PROCEDURE: 11/14/2019 PREOPERATIVE DIAGNOSIS: Cholelithiasis with cholecystitis. POSTOPERATIVE DIAGNOSIS: Cholelithiasis with cholecystitis. PROCEDURE: Laparoscopic cholecystectomy. SURGEON: Cyn Saldivar M.D. DESCRIPTION OF PROCEDURE: Under general anesthesia, patient's abdomen was prepped and draped in a sterile field. Supraumbilical incision was made and Veress needle was inserted uneventfully. A 12 mm port was placed. Laparoscope was placed. Under videoscopic guidance, a 12 mm port and two 5 mm ports were placed in the right subcostal region. The gallbladder was dilated but was not severely inflamed. It was grasped and positioned. Cystic duct and cystic artery were isolated. Cystic duct was clipped with five clips close to the gallbladder and divided. Cystic artery was clipped with four clips distally on the wall of the gallbladder and divided. The gallbladder was from the infrahepatic space using electrocautery. It was placed in an Endopouch and retrieved. There was slight oozing in the mid-portion of the bed of the gallbladder which was not totally controlled with electrocautery. A sheet of Surgicel was placed. A #10 Dusty drain was placed. It was brought out through the most lateral incision. CO2 was allowed to escape from the abdomen and the ports were removed. Fascia at the umbilicus was closed with 0 Vicryl. Skin incisions were closed with micaela. Drain was secured with 2-0 nylon. The patient tolerated the procedure well. She was awakened, transferred to a bed, and taken to the postanesthetic care unit in stable, satisfactory condition. LCS:quincy Job ID: [id number] Doc ID: [id number] Cyn Saldivar M.D.
--- NOTE | 2019-11-21 13:57 | Operative Note ---
DATE OF OPERATION: 11/15/2019 DATE OF PROCEDURE: 11/14/2019 PREOPERATIVE DIAGNOSIS: Postoperative hemorrhage status post cholecystectomy. POSTOPERATIVE DIAGNOSIS: Postoperative hemorrhage from cystic artery branch. PROCEDURE: Diagnostic laparoscopy with control of postoperative hemorrhage from cystic duct branch. SURGEON: Cyn Saldivar M.D. FINDINGS: Large volume clot in subhepatic space with bleeding from the cystic artery stump. Though four clips had been placed on the proximal end of the cystic artery stump, the clips were lying free in the subhepatic space, and there was free pulsatile bleeding from the cystic artery. DESCRIPTION OF PROCEDURE: Under general anesthesia, the patient was prepped and draped in a sterile field. She had been given 2 units of blood. The micaela were removed and the ports were used. Through the supraumbilical port, a 12 mm port was placed. The abdomen was insufflated. Under guidance, a 12 mm port and two 5 mm ports were placed in the right subcostal region. There was a large volume of clot in the subhepatic space with some liquified blood over the liver and a small amount of liquified blood in the pelvis. Using Kitner dissectors, the clot in the subhepatic space was dissected free and then the large residential roofer helper was used to suction the clot. This was irrigated and while irrigating in the area of the cystic artery, pulsatile bleeding was noted. Another suction residential roofer helper was placed and suction was carried out under high pressure until the cystic artery stump was identified. It was grasped and the bleeding stopped. Three clips were placed securely on the stump, taking care that the clips were totally flat. Copious irrigation was carried out. Blood above the liver was suctioned. When suctioning the blood in the subhepatic space, the clips that had been previously placed were noted. They were not totally closed at the proximal end and was probably the reason why they fell off the artery. The artery was lightly cauterized but was not totally cauterized because of fear of reducing the volume of tissue and the clips falling off again. Drains were placed in the subhepatic space. They were brought out through lateral incisions. The ports were removed. Fascia at the umbilicus was closed with interrupted 0 Vicryl. Skin incisions were closed with micaela. Tegaderm dressings were placed. The drains were secured with 2-0 nylon. The patient was awakened, extubated, and transferred to the postanesthetic care unit in satisfactory condition. LCS:quincy Job ID: [id number] Doc ID: [id number] Cyn Saldivar M.D.
== END 2019-11-17 14:21 | disposition home or self-care (01) | DRG 417 ==
LOC: SUR 06:04 → MEDSUR 09:46
PROVIDERS: ADMIT Family Medicine Adult Medicine; ATTEND Family Medicine Adult Medicine

== ENCOUNTER 2020-04-26 12:53 | Inpatient (IN) ==
[2020-04-26 13:54] LABS: ABG Methemoglobin 0.3 % (0.4-1.5); Total Hemoglobin 11.8 gm/Dl (13.5-16.5); VBG Oxygen Saturation 85.7 %; VBG PH 7.41 U; VBG Total CO2 26.2 mmol/L
[2020-04-26 14:01] LABS: Basophils # (Auto) 0.02 K/mcL (0.00-0.20); Basophils % (Auto) 0.2 % (0.0-2.0); Eosinophils # (Auto) 0 K/mcL (0.00-0.70); Eosinophils % (Auto) 0 % (0.0-7.0); Hematocrit 35.5 % (36.0-48.0); Hemoglobin 11.8 g/dL (12.0-15.0); Lymphocytes # (Auto) 0.85 K/mcL (1.50-4.80); Lymphocytes % (Auto) 8.5 % (15.0-49.0); Mean Cell Volume 85.1 fL (80.0-100.0); Mean Corpuscular HGB Conc 33.2 g/dL (31.0-36.0); Mean Platelet Volume 9.4 fL (7.4-10.4); Monocytes # (Auto) 0.21 K/mcL (0.10-0.90); Monocytes % (Auto) 2.1 % (1.0-12.0); Neutrophils % (Auto) 89.2 % (38.0-78.0); Platelet Count 350 K/mcL (140-440); RBC 4.17 M/mcL (4.00-5.20); Red Cell Distribution Width 13.9 % (11.5-14.5)
--- NOTE | 2020-04-26 14:11 | XRay Report ---
CLINICAL INFORMATION: CP/dyspnea COMPARISON: 04/22/2020 FINDINGS: Heart size, mediastinum and pulmonary vessels are normal. Moderate patchy infiltrates have developed in the right midlung and base. Small patchy infiltrate developing in the left lateral midlung and base. No effusion IMPRESSION: Moderate patchy infiltrate involving the right midlung and base. Small patchy infiltrate left midlung and base. Interpreted and Authenticated by: Marvin Frazier 04/26/20
[2020-04-26] MEDS ORDERED: 0.9 % SODIUM CHLORIDE 500 ML IV ONE (14:16)
[2020-04-26 14:33] LABS: ALT/SGPT 30 U/L (<40); AST/SGOT 53 U/L (<32); Albumin 3.7 gm/dL (3.2-5.2); Albumin/Globulin Ratio 1.1 (1.0-2.3); Alkaline Phosphatase 191 U/L (39-117); Bilirubin,Total 0.5 mg/dL (0.1-1.0); Blood Urea Nitrogen 12 mg/dL (6-20); Calcium 9.3 mg/dL (8.6-10.4); Carbon Dioxide 22 mmol/L (22-30); Chloride 97 mmol/L (96-108); Globulin 3.4 gm/dL (2.2-3.7); Glomerular Filtration Rate 72; Glucose 248 mg/dL (70-105); proBNP 514.3 pg/mL (<125.0)
[2020-04-26] MEDS ORDERED: 0.9 % SODIUM CHLORIDE 1,000 ML IV ONE (15:32)
[2020-04-26] MEDS ORDERED: HEPARIN 5,000 UNIT/ML VIAL SQ ONE (17:06)
[2020-04-26] MEDS ORDERED: ASPIRIN 325 MG ENTERIC COATED TABLET PO ONE ×2 (17:06→17:49)
[2020-04-26] MEDS ORDERED: DEXAMETHASONE 10 MG/ML VIAL IV ONE (17:14)
--- NOTE | 2020-04-26 17:14 | Emergency Department Note ---
HPI General Chief complaint: Shortness of Breath/Dyspnea Stated complaint: shortness of breath, possible covid Time Seen by Provider: 04/26/20 12:55 Source: patient Mode of arrival: ambulatory Limitations: no limitations History of Present Illness HPI Narrative: Narrative: 55-year-old patient presented with a history of symptoms consistent with upper respiratory infection that began about a week ago. Associated symptoms include cough. Specific risk factors that I considered in this patient's case were hypertension, diabetes, pre-existing cardiovascular disease, and pre-existing pulmonary disease. Patient also reports concern for fever/myalgias. Symptoms are currently reported as mild to moderate in severity and gradual progressive over time. Is exacerbated with coughing/not sleeping well. It is alleviated by rest. Patient has not been seen for this recently. Patient has had current immunizations. Patient denies any sore throat, neck pain, chest pain, shortness of breath, abdominal pain, back pain, numbness or tingling in the extremities, skin rash, chills, vomiting, or diarrhea no other pain or complaints at this time. The patient reports symptoms are similar to previous flu/URI. Patient reports they do have sick contacts. Patient reports they have not been tested for COVID19. Related Data Home Medications Medication Instructions Recorded Confirmed glipizide 5 mg tablet 5 mg PO QHS tab 05/22/19 04/26/20 glipizide 5 mg tablet 10 mg PO QAM tab 05/22/19 04/26/20 qwncdzru-gfe-ghmt-FA-lutein 1 each PO DAILY 11/07/19 04/26/20 vitamin B complex 1 each PO DAILY 11/07/19 04/26/20 atorvastatin 1 tab PO HS 11/14/19 04/26/20 Previous Rx's Medication Instructions Recorded metformin 500 mg tablet,extended 500 mg PO QID #120 tab 06/18/19 release 24 hr cyclobenzaprine 10 mg tablet See Rx Instructions PO .QD PRN 08/13/19 #240 tab sumatriptan succinate 25 mg tablet 25 mg PO Q2-4H PRN #30 tab 08/13/19 pen needle, diabetic 31 gauge x #100 unknown measurement unit 10/24/19 3/16" code: not specified insulin degludec 100 unit/mL (3 25 unit SUB-Q QDAY #15 ml 01/24/20 mL) subcutaneous pen levothyroxine 100 mcg tablet See Rx Instructions .ROUTE 02/06/20 .COMPLEX #90 unknown measurement unit code: tablet Low Dose Naltrexone 2 mg PO QDAY #30 each 02/28/20 citalopram 20 mg tablet 20 mg PO QDAY #60 tab 02/28/20 pregabalin 50 mg capsule 50 mg PO BID #60 cap 03/18/20 albuterol sulfate 90 mcg/actuation 2 puff INHALATION .q4-6h PRN #8.5 g 04/22/20 aerosol inhaler prednisone 20 mg tablet 40 mg PO QAM 5 Days #10 tab 04/22/20 Allergies Allergy/AdvReac Type Severity Reaction Status Date / Time clindamycin Allergy Mild Rash Verified 04/26/20 12:22 duloxetine [From Cymbalta] AdvReac Mild Nausea & Verified 04/26/20 12:22 Vomiting Review of Systems ROS ROS Narrative: Narrative: All systems ED: reviewed and negative except as stated. [facility] Narrative Patient History Narrative: Narrative: Medical/Surgical/Family History All Active Problems (Updated 04/26/20 @ 23:18 by Vernon Ricardo MD) Hypoxia (Acute) COVID-19 (Acute) Bronchitis (Acute) Shortness of breath (Acute) Viral syndrome (Acute) Exposure to COVID-19 virus (Acute) Muscle spasm (Acute) Back pain (Acute) Cholelithiasis and cholecystitis without obstruction (Acute) Postoperative hemorrhage (Acute) Diabetes (Chronic) Thyroid disease (Chronic ~2016) Migraines (Chronic) Joint pain (Chronic ~11/2018) High cholesterol (Chronic) Depression (Chronic ~2016) Acid reflux (Chronic) Anxiety (Chronic) Medical History (Updated 04/26/20 @ 23:18 by Vernon Ricardo MD) Acid reflux (Chronic) Anxiety (Chronic) Back pain (Acute) Bronchitis (Acute) Depression (Chronic ~2016) Diabetes (Chronic) Exposure to COVID-19 virus (Acute) High cholesterol (Chronic) Joint pain (Chronic ~11/2018) Migraines (Chronic) Muscle spasm (Acute) Shortness of breath (Acute) Thyroid disease (Chronic ~2016) Viral syndrome (Acute) Surgical History History of 2 sections (Chronic) 1985 & 1986 History of hysterectomy with unilateral oophorectomy (Chronic ~06/1998) Right History of laparoscopic cholecystectomy (Acute) 11/14/2019 History of laparoscopy (Acute) 11/14/2019-Diagnostic laparoscopy with control of postoperative hemorrhage from cystic duct branch History of left oophorectomy (Chronic ~04/1998) History of toe surgery (Chronic ~2002) Right great toe History of tonsillectomy (Chronic ~1968) Status post insertion of spinal cord stimulator (Chronic ~2016) Family History Grandmother Arthritis Maternal Stroke Maternal Grandfather Arthritis Maternal Stroke Maternal and Paternal Family/Other Colon cancer Uncles Brain cancer Uncles Breast cancer Aunt and cousin Mother Migraines Social History Smoking Status: Former smoker Alcohol Intake Frequency: a few times a month Substance Use: does not use Exam Narrative Narrative: Patient noted to be hypoxic on initial evaluation given 2 L of oxygen by nasal cannula; patient also noted to have blood pressure high 80s to low 90s fairly regularly without tachycardia General: Alert, interactive, appropriate Head: Atraumatic, normocephalic Eyes: Extraocular movements intact, sclera anicteric, no conjunctival injection Ears: Pinnae normal, no discharge Mouth: Oral mucosa moist, no acute swelling or evidence of infection Nares: No nasal discharge, patent bilaterally Neck: Trachea midline, full range of motion Chest: Symmetrical chest wall rise, breathing normally; nonlabored respirations Cardiovascular: Patient with excellent perfusion to the extremities; without tachycardia/bradycardia Skin: Patient without area of erythema, patient is without rash, no ascending lymphangitis or lymphadenopathy Extremities: Full range of motion joints, no obvious deformities Neuro: Alert, oriented x3, cranial nerves II through XII grossly intact, patient without lateralizing findings such as weakness, or abnormal reflexes Psychiatric: Normal affect, normal mood General Limitations: no limitations Course Vital Signs Vital signs: Vital Signs Temperature 98.2 F 04/26/20 12:54 Pulse Rate 95 H 04/26/20 12:54 Respiratory Rate 14 04/26/20 12:54 Blood Pressure 96/71 04/26/20 12:54 Pulse Oximetry (%) 93 04/26/20 12:54 Temperature 97.7 F 04/26/20 15:52 Pulse Rate 93 H 04/26/20 21:23 Respiratory Rate 15 04/26/20 21:23 Blood Pressure 92/65 04/26/20 21:23 Pulse Oximetry (%) 92 04/26/20 21:23 [facility] MDM Narrative Medical decision making narrative: This patient is presenting with symptoms and findings consistent with COVID. They are nontoxic in appearance. They are not immunocompromised. Patient does have oxygen requirement. Patient treated in the emergency department with O2 by nasal cannula as well as heparin 5000 units subcu, aspirin 650 mg, IV fluids and Decadron 10 mg IV. The differential diagnosis also included COVID19. I discussed case with Dr. Galo the hospitalist and consensus medical opinion is to have the patient for hypoxia Covid positive. Lab Data Result diagrams: 04/26/20 13:16 04/26/20 13:16 Labs: Lab Results 04/26/20 04/26/20 04/26/20 Range/Units 13:16 13:16 13:16 WBC 10.0 (4.5-11.0) K/mcL RBC 4.17 (4.00-5.20) M/mcL Hgb 11.8 L (12.0-15.0) g/dL Hct 35.5 L (36.0-48.0) % MCV 85.1 (80.0-100.0) fL MCH 28.3 (26.0-34.0) pg MCHC 33.2 (31.0-36.0) g/dL RDW 13.9 (11.5-14.5) % Plt Count 350 (140-440) K/mcL MPV 9.4 (7.4-10.4) fL Neut % (Auto) 89.2 H (38.0-78.0) % Lymph % (Auto) 8.5 L (15.0-49.0) % [place] % (Auto) 2.1 (1.0-12.0) % Eos % (Auto) 0 (0.0-7.0) % Baso % (Auto) 0.2 (0.0-2.0) % Lymph # (Auto) 0.85 L (1.50-4.80) K/mcL [place] # (Auto) 0.21 (0.10-0.90) K/mcL Eos # (Auto) 0 (0.00-0.70) K/mcL Baso # (Auto) 0.02 (0.00-0.20) K/mcL Absolute Neutrophils 8.91 H (1.80-8.00) K/mcL D-Dimer 0.48 (0.27-0.50) ug/mL ABG Methemoglobin (0.4-1.5) % VBG pH U VBG pCO2 mmHg VBG pO2 mmHg VBG HCO3 mmol/L VBG Total CO2 mmol/L VBG O2 Saturation % VBG Base Excess (-2-3) Carboxyhemoglobin (0.0-1.5) % THgb Total Hemoglobin (13.5-16.5) gm/Dl Sodium 135 (133-145) mmol/L Potassium 3.5 (3.3-5.1) mmol/L Chloride 97 (96-108) mmol/L Carbon Dioxide 22 (22-30) mmol/L Anion Gap 16.0 (8.0-16.0) BUN 12 (6-20) mg/dL Creatinine 0.9 (0.6-1.1) mg/dL GFR Calculation 72 Glucose 248 H (70-105) mg/dL Calcium 9.3 (8.6-10.4) mg/dL Total Bilirubin 0.5 (0.1-1.0) mg/dL AST 53 H (<32) U/L ALT 30 (<40) U/L Alkaline Phosphatase 191 H (39-117) U/L Troponin T (<0.03) ng/mL NT-Pro-B Natriuret Pep 514.3 H (<125.0) pg/mL Total Protein 7.1 (5.9-8.4) gm/dL Albumin 3.7 (3.2-5.2) gm/dL Globulin 3.4 (2.2-3.7) gm/dL Albumin/Globulin Ratio 1.1 (1.0-2.3) Mycoplasma pneumon IgM (Negative) 04/26/20 04/26/20 04/26/20 Range/Units 13:16 13:16 17:00 WBC (4.5-11.0) K/mcL RBC (4.00-5.20) M/mcL Hgb (12.0-15.0) g/dL Hct (36.0-48.0) % MCV (80.0-100.0) fL MCH (26.0-34.0) pg MCHC (31.0-36.0) g/dL RDW (11.5-14.5) % Plt Count (140-440) K/mcL MPV (7.4-10.4) fL Neut % (Auto) (38.0-78.0) % Lymph % (Auto) (15.0-49.0) % [place] % (Auto) (1.0-12.0) % Eos % (Auto) (0.0-7.0) % Baso % (Auto) (0.0-2.0) % Lymph # (Auto) (1.50-4.80) K/mcL [place] # (Auto) (0.10-0.90) K/mcL Eos # (Auto) (0.00-0.70) K/mcL Baso # (Auto) (0.00-0.20) K/mcL Absolute Neutrophils (1.80-8.00) K/mcL D-Dimer (0.27-0.50) ug/mL ABG Methemoglobin 0.3 L (0.4-1.5) % VBG pH 7.41 U VBG pCO2 40.0 mmHg VBG pO2 58 mmHg VBG HCO3 25.0 mmol/L VBG Total CO2 26.2 mmol/L VBG O2 Saturation 85.7 % VBG Base Excess 1 (-2-3) Carboxyhemoglobin 4.9 H (0.0-1.5) % THgb Total Hemoglobin 11.8 L (13.5-16.5) gm/Dl Sodium (133-145) mmol/L Potassium (3.3-5.1) mmol/L Chloride (96-108) mmol/L Carbon Dioxide (22-30) mmol/L Anion Gap (8.0-16.0) BUN (6-20) mg/dL Creatinine (0.6-1.1) mg/dL GFR Calculation Glucose (70-105) mg/dL Calcium (8.6-10.4) mg/dL Total Bilirubin (0.1-1.0) mg/dL AST (<32) U/L ALT (<40) U/L Alkaline Phosphatase (39-117) U/L Troponin T < 0.01 (<0.03) ng/mL NT-Pro-B Natriuret Pep (<125.0) pg/mL Total Protein (5.9-8.4) gm/dL Albumin (3.2-5.2) gm/dL Globulin (2.2-3.7) gm/dL Albumin/Globulin Ratio (1.0-2.3) Mycoplasma pneumon IgM Negative (Negative) Discharge Plan Patient/Caregiver Discharge Instructions Pt seen by COVERING AND LINING SUPERVISOR/PA only: No Clinical Impression: Hypoxia, COVID-19 Patient Disposition: Xfer As Inpt ([facility]) Condition: Fair Discharge Date/Time: 04/26/20 18:42
[2020-04-26] MEDS ORDERED: CYCLOBENZAPRINE (PP) 10 MG TABLET PO PRN (18:34)
[2020-04-26] MEDS ORDERED: ALBUTEROL SULFATE 200 PUFF INHALER INH PRN (18:34)
[2020-04-26] MEDS ORDERED: SUMAtriptan SUCCINATE 25 MG TABLET PO PRN (18:34)
[2020-04-26] MEDS ORDERED: LEVOTHYROXINE 100 MCG TABLET PO SCH (18:45)
[2020-04-26] MEDS ORDERED: ACETAMINOPHEN 650 MG/65 ML BOTTLE IV PRN (18:54)
[2020-04-26] MEDS ORDERED: ONDANSETRON 4 MG ODT TABLET SL PRN (18:54)
[2020-04-26] MEDS ORDERED: BISACODYL 10 MG SUPP.RECT PR PRN (18:54)
[2020-04-26] MEDS ORDERED: ACETAMINOPHEN 325 MG TABLET PO PRN (18:54)
[2020-04-26] MEDS ORDERED: ONDANSETRON 4 MG/2 ML VIAL IV PRN (18:54)
[2020-04-26] MEDS ORDERED: POTASSIUM CHLORIDE 20 MEQ PACKET PO PRN (18:54)
[2020-04-26] MEDS ORDERED: MAGNESIUM SULFATE 2 GM/50 ML BAG IV PRN (18:54)
[2020-04-26] MEDS ORDERED: guaiFENesin/CODEINE 10 ML UDC PO PRN (18:54)
[2020-04-26] MEDS ORDERED: POLYETHYLENE GLYCOL 3350 17 GM PACKET PO PRN (18:54)
[2020-04-26] MEDS ORDERED: MELATONIN 3 MG TABLET PO PRN (18:54)
[2020-04-26] MEDS ORDERED: POTASSIUM CHLORIDE 40 MEQ in DEXTROSE 5% IN WATER 500 ML IV PRN (18:54)
[2020-04-26] MEDS ORDERED: CYCLOBENZAPRINE 10 MG TABLET PO PRN (19:45)
[2020-04-26] MEDS: AZITHROMYCIN 500 MG in DEXTROSE 5% IN WATER 250 ML IV SCH (20:30)
[2020-04-26] MEDS: DOCUSATE SODIUM 100 MG CAPSULE PO SCH (20:31)
[2020-04-26] MEDS ORDERED: REMDESIVIR 200 MG in 0.9 % SODIUM CHLORIDE 250 ML IV ONE (21:00)
[2020-04-26] MEDS: SENNOSIDES/DOCUSATE SODIUM 1 TAB TABLET PO SCH (21:02)
[2020-04-26] MEDS: HEPARIN 5,000 UNIT/ML VIAL SQ SCH (21:02)
[2020-04-26] MEDS ORDERED: cefTRIAXone 2 GM VIAL ONE (21:15)
[2020-04-26] MEDS: PREGABALIN 25 MG CAPSULE PO SCH (21:19)
[2020-04-26] MEDS: glipiZIDE 5 MG TABLET PO SCH (21:20)
[2020-04-26] MEDS: metFORMIN 500 MG TAB.XL.24H PO SCH (21:20)
[2020-04-26] MEDS: ATORVASTATIN 10 MG TABLET PO SCH (21:20)
[2020-04-26] MEDS: 0.9 % SODIUM CHLORIDE 10 ML SYRINGE IV SCH (21:21)
[2020-04-26] MEDS: BUDESONIDE 1 PUFF INHALER INH SCH (21:22)
[2020-04-26] MEDS: cefTRIAXone 2 GM in DEXTROSE 5% IN WATER 50 ML IV SCH (21:42)
--- NOTE | 2020-04-26 22:40 | Internal Med History&Physical ---
HPI History of Present Illness Patient information: Note initiated : 04/26/20 at 10:39 pm Service Date, if different from initiated Date: [] Patient: Gena Ordoñez a 55 y/o F admitted on 04/26/20 for shortness of breath, possible covid. Chief Complaint: [] History of present illness: Ms. Ordoñez is a 55 year old F is to the ER for the third time the last 10 days of increasing shortness of breath. During the initial 2 visits work-up was inconsistent with findings that would require admission. Covid 19 test was negative. However symptoms have continued during the dyspnea on exertion/increasing cough, weakness. She has associated cough and shortness of breath aggravates during spells of cough. Initial work-up was consistent with bilateral chest infiltrates suggestive of COVID-19. Patient has been exposed to Covid recently. Repeat test sent out. Currently on 4 L oxygen. Patient was started on supplemental oxygen subsequently hospitalist service was consulted. At the time of my evaluation patient is alert but anxious. She was able to answer most the question and provide history as above. endorses to exposure to sick contact recently. Denies productive sputum, diarrhea but endorses to myalgia weakness but denies rash joint pain photophobia or neck stiffness. Review of systems 10 point review system was performed and is negative except for ones cussed above PFSH PFSH All Active Problems (Updated 04/26/20 @ 23:18 by Vernon Ricardo MD) Hypoxia (Acute) COVID-19 (Acute) Bronchitis (Acute) Shortness of breath (Acute) Viral syndrome (Acute) Exposure to COVID-19 virus (Acute) Muscle spasm (Acute) Back pain (Acute) Cholelithiasis and cholecystitis without obstruction (Acute) Postoperative hemorrhage (Acute) Diabetes (Chronic) Thyroid disease (Chronic ~2016) Migraines (Chronic) Joint pain (Chronic ~11/2018) High cholesterol (Chronic) Depression (Chronic ~2016) Acid reflux (Chronic) Anxiety (Chronic) Medical History (Updated 04/26/20 @ 23:18 by Vernon Ricardo MD) Acid reflux (Chronic) Anxiety (Chronic) Back pain (Acute) Bronchitis (Acute) Depression (Chronic ~2016) Diabetes (Chronic) Exposure to COVID-19 virus (Acute) High cholesterol (Chronic) Joint pain (Chronic ~11/2018) Migraines (Chronic) Muscle spasm (Acute) Shortness of breath (Acute) Thyroid disease (Chronic ~2016) Viral syndrome (Acute) Surgical History History of 2 sections (Chronic) 1985 & 1986 History of hysterectomy with unilateral oophorectomy (Chronic ~06/1998) Right History of laparoscopic cholecystectomy (Acute) 11/14/2019 History of laparoscopy (Acute) 11/14/2019-Diagnostic laparoscopy with control of postoperative hemorrhage from cystic duct branch History of left oophorectomy (Chronic ~04/1998) History of toe surgery (Chronic ~2002) Right great toe History of tonsillectomy (Chronic ~1968) Status post insertion of spinal cord stimulator (Chronic ~2016) Family History Grandmother Arthritis Maternal Stroke Maternal Grandfather Arthritis Maternal Stroke Maternal and Paternal Family/Other Colon cancer Uncles Brain cancer Uncles Breast cancer Aunt and cousin Mother Migraines Social History marital status: occupational status: employed occupation: [employer] smoking status: Former smoker alcohol intake frequency: a few times a month substance use type: does not use MEDS/ALLERGIES Home Medications and Allergies Home Medications Medication Instructions Recorded Confirmed Type glipizide 5 mg tablet 5 mg PO QHS tab 05/22/19 04/26/20 History glipizide 5 mg tablet 10 mg PO QAM tab 05/22/19 04/26/20 History metformin 500 mg tablet,extended 500 mg PO QID #120 tab 06/18/19 04/26/20 Rx release 24 hr cyclobenzaprine 10 mg tablet See Rx Instructions PO .QD PRN 08/13/19 04/26/20 Rx #240 tab sumatriptan succinate 25 mg tablet 25 mg PO Q2-4H PRN #30 tab 08/13/19 04/26/20 Rx pen needle, diabetic 31 gauge x #100 unknown measurement unit 10/24/19 04/26/20 Rx 3/16" code: not specified rkwbkzyi-lto-wnzr-FA-lutein 1 each PO DAILY 11/07/19 04/26/20 History vitamin B complex 1 each PO DAILY 11/07/19 04/26/20 History atorvastatin 1 tab PO HS 11/14/19 04/26/20 History insulin degludec 100 unit/mL (3 25 unit SUB-Q QDAY #15 ml 01/24/20 04/26/20 Rx mL) subcutaneous pen levothyroxine 100 mcg tablet See Rx Instructions .ROUTE 02/06/20 04/26/20 Rx .COMPLEX #90 unknown measurement unit code: tablet Low Dose Naltrexone 2 mg PO QDAY #30 each 02/28/20 04/26/20 Rx citalopram 20 mg tablet 20 mg PO QDAY #60 tab 02/28/20 04/26/20 Rx pregabalin 50 mg capsule 50 mg PO BID #60 cap 03/18/20 04/26/20 Rx albuterol sulfate 90 mcg/actuation 2 puff INHALATION .q4-6h PRN #8.5 g 04/22/20 04/26/20 Rx aerosol inhaler prednisone 20 mg tablet 40 mg PO QAM 5 Days #10 tab 04/22/20 04/26/20 Rx Allergies Allergy/AdvReac Type Severity Reaction Status Date / Time clindamycin Allergy Mild Rash Verified 04/26/20 12:22 duloxetine [From Cymbalta] AdvReac Mild Nausea & Verified 04/26/20 12:22 Vomiting EXAM Constitutional Vitals: Temp Pulse Resp BP Pulse Ox 97.7 F 93 H 15 92/65 92 04/26/20 15:52 04/26/20 21:23 04/26/20 21:23 04/26/20 21:23 04/26/20 21:23 Head normocephalic Oral cavity moist No ear nose discharge Eye movement symmetrical Neck supple no lymphadenopathy S1-S2 regular tachycardia Labored breathing on 4 L oxygen. Nondistended nontender abdomen Lower extremity no cyanosis clubbing or joint swelling Skin no suspicious lesion Psych anxious but alert cooperative Neuro normal higher function DATA Data Completed and Pending Labs: Labs from last 24 hours 04/26/20 04/26/20 04/26/20 20:18 20:18 17:00 WBC RBC Hgb Hct MCV MCH MCHC RDW Plt Count MPV Neut % (Auto) Lymph % (Auto) [place] % (Auto) Eos % (Auto) Baso % (Auto) Lymph # (Auto) [place] # (Auto) Eos # (Auto) Baso # (Auto) Absolute Neutrophils D-Dimer ABG Methemoglobin VBG pH VBG pCO2 VBG pO2 VBG HCO3 VBG Total CO2 VBG O2 Saturation VBG Base Excess Carboxyhemoglobin Total Hemoglobin O2 Delivery Level Sodium Potassium Chloride Carbon Dioxide Anion Gap BUN Creatinine GFR Calculation Glucose Calcium Total Bilirubin AST ALT Alkaline Phosphatase Troponin T NT-Pro-B Natriuret Pep Total Protein Albumin Globulin Albumin/Globulin Ratio Ur L.pneumophila Ag Pending Mycoplasma pneumon IgM Negative SARS-CoV-2 (PCR) Ur Strep pneumoniae Ag Negative 04/26/20 04/26/20 04/26/20 14:16 13:16 13:16 WBC RBC Hgb Hct MCV MCH MCHC RDW Plt Count MPV Neut % (Auto) Lymph % (Auto) [place] % (Auto) Eos % (Auto) Baso % (Auto) Lymph # (Auto) [place] # (Auto) Eos # (Auto) Baso # (Auto) Absolute Neutrophils D-Dimer ABG Methemoglobin 0.3 L VBG pH 7.41 VBG pCO2 40.0 VBG pO2 58 VBG HCO3 25.0 VBG Total CO2 26.2 VBG O2 Saturation 85.7 VBG Base Excess 1 Carboxyhemoglobin 4.9 H Total Hemoglobin 11.8 L O2 Delivery Level Pending Sodium Potassium Chloride Carbon Dioxide Anion Gap BUN Creatinine GFR Calculation Glucose Calcium Total Bilirubin AST ALT Alkaline Phosphatase Troponin T < 0.01 NT-Pro-B Natriuret Pep Total Protein Albumin Globulin Albumin/Globulin Ratio Ur L.pneumophila Ag Mycoplasma pneumon IgM SARS-CoV-2 (PCR) Pending Ur Strep pneumoniae Ag 04/26/20 04/26/20 04/26/20 13:16 13:16 13:16 WBC 10.0 RBC 4.17 Hgb 11.8 L Hct 35.5 L MCV 85.1 MCH 28.3 MCHC 33.2 RDW 13.9 Plt Count 350 MPV 9.4 Neut % (Auto) 89.2 H Lymph % (Auto) 8.5 L [place] % (Auto) 2.1 Eos % (Auto) 0 Baso % (Auto) 0.2 Lymph # (Auto) 0.85 L [place] # (Auto) 0.21 Eos # (Auto) 0 Baso # (Auto) 0.02 Absolute Neutrophils 8.91 H D-Dimer 0.48 ABG Methemoglobin VBG pH VBG pCO2 VBG pO2 VBG HCO3 VBG Total CO2 VBG O2 Saturation VBG Base Excess Carboxyhemoglobin Total Hemoglobin O2 Delivery Level Sodium 135 Potassium 3.5 Chloride 97 Carbon Dioxide 22 Anion Gap 16.0 BUN 12 Creatinine 0.9 GFR Calculation 72 Glucose 248 H Calcium 9.3 Total Bilirubin 0.5 AST 53 H ALT 30 Alkaline Phosphatase 191 H Troponin T NT-Pro-B Natriuret Pep 514.3 H Total Protein 7.1 Albumin 3.7 Globulin 3.4 Albumin/Globulin Ratio 1.1 Ur L.pneumophila Ag Mycoplasma pneumon IgM SARS-CoV-2 (PCR) Ur Strep pneumoniae Ag A/P Narrative A/P Narrative: * Covid 19 PNA-bilateral multifocal. Start remdesivir empirically. Check ferritin/CRP/follow serial liver enzymes. Empiric antibiotic coverage de- escalate based on further testing * Acute hypoxic resp failure currently on 4-6 L oxygen. Secondary to Covid pneumonia. However rule out alternate etiology. Check echocardiogram/CT. intermittent prone ventilation * DMII-basal prandial insulin,CC diet * Neuropathy continue Lyrica * Anxiety disorder continue citalopram * Hyperlipidemia continue statin * Hypothyroid contraction * History of migraine -no acute flare. * Limited code * Prophylaxis heparin Plan * Inpatient admission * Noninvasive ventilation if worsening respiratory status * Remdesivir * Prone ventilation if indicated * Pre-existing medical condition management home meds * Patient critically ill with [place] 2 score over 15 requiring ICU admission Critical care time spent on management of hypoxic story failure/Covid pneumonia in excess of 35 minutes in addition to time spent on history and physical Time Spent With Patient Time: Total time spent is greater than 50% in coordination of care (as documented) at patient's floor/unit and/or counseling patient:
[2020-04-27] MEDS: 0.9 % SODIUM CHLORIDE 10 ML SYRINGE IV SCH ×3 (05:39→21:22)
[2020-04-27] MEDS: DOCUSATE SODIUM 100 MG CAPSULE PO SCH ×2 (07:54→21:21)
[2020-04-27] MEDS: BUDESONIDE 1 PUFF INHALER INH SCH ×2 (07:55→21:34)
[2020-04-27 08:11] LABS: ALT/SGPT 26 U/L (<40); AST/SGOT 44 U/L (<32); Albumin/Globulin Ratio 0.9 (1.0-2.3); Alkaline Phosphatase 162 U/L (39-117); Bilirubin,Direct < 0.2 mg/dL (<0.3); Bilirubin,Total 0.2 mg/dL (0.1-1.0); Blood Urea Nitrogen 14 mg/dL (6-20); Calcium 8.3 mg/dL (8.6-10.4); Carbon Dioxide 22 mmol/L (22-30); Chloride 100 mmol/L (96-108); Globulin 3.2 gm/dL (2.2-3.7); Glomerular Filtration Rate 97; Glucose 227 mg/dL (70-105); Lactate Dehydrogenase 310 U/L (135-225); Triglycerides 158 mg/dL (<150); Uric Acid 5.1 mg/dL (2.5-8.0)
[2020-04-27] MEDS: LEVOTHYROXINE 100 MCG TABLET PO SCH (08:27)
[2020-04-27] MEDS: PREGABALIN 25 MG CAPSULE PO SCH ×2 (08:27→21:21)
[2020-04-27] MEDS: DEXAMETHASONE 4 MG TABLET PO SCH (08:27)
[2020-04-27] MEDS: MULTIVIT,THER IRON,CA,FA & MIN 1 TABLET PO SCH (08:27)
[2020-04-27] MEDS: metFORMIN 500 MG TAB.XL.24H PO SCH ×3 (08:28→21:21)
[2020-04-27] MEDS: CITALOPRAM 20 MG TABLET PO SCH (08:28)
[2020-04-27] MEDS: HEPARIN 5,000 UNIT/ML VIAL SQ SCH ×2 (08:28→21:21)
[2020-04-27] MEDS: predniSONE 20 MG TABLET PO SCH (08:28)
[2020-04-27] MEDS: VITAMIN B COMPLEX 1 CAPSULE PO SCH (08:28)
[2020-04-27] MEDS: glipiZIDE 5 MG TABLET PO SCH ×2 (08:28→21:21)
[2020-04-27] MEDS: NALTREXONE PO SCH (08:32)
[2020-04-27] MEDS: TIOTROPIUM BROMIDE 18 MCG INHALANT INH SCH (08:33)
[2020-04-27 08:36] LABS: Band Neutrophils % 3 % (0-10); Hematocrit 31.6 % (36.0-48.0); Hemoglobin 10.1 g/dL (12.0-15.0); Lymphocytes % 6 % (15-49); Mean Cell Volume 86.8 fL (80.0-100.0); Mean Platelet Volume 9.3 fL (7.4-10.4); Monocytes % (Manual) 3 % (1-12); Platelet Count 350 K/mcL (140-440); Platelet Estimate NORMAL (Normal); RBC 3.64 M/mcL (4.00-5.20); RBC Morphology NORMAL (Normal); Reactive Lymphocytes 1 % (0-2); Red Cell Distribution Width 13.9 % (11.5-14.5); Segmented Neutrophils % 87 % (38-78); WBC 6.7 K/mcL (4.5-11.0)
[2020-04-27] MEDS ORDERED: MULTIVIT MIN IRON FA LUTEIN PO SCH (09:00)
[2020-04-27] MEDS: cefTRIAXone 2 GM in DEXTROSE 5% IN WATER 50 ML IV SCH (09:34)
[2020-04-27] MEDS: AZITHROMYCIN 500 MG in DEXTROSE 5% IN WATER 250 ML IV SCH (09:34)
[2020-04-27] MEDS ORDERED: IOPAMIDOL 100 ML BOTTLE IV ONE (10:41)
[2020-04-27] MEDS: REMDESIVIR 100 MG in 0.9 % SODIUM CHLORIDE 250 ML IV SCH (11:17)
--- NOTE | 2020-04-27 11:23 | Internal Med Progress Note ---
SUBJECTIVE Subjective Patient information: Note initiated : 04/27/20 at 11:18 am Service Date, if different from initiated Date: [] Patient: Gena Ordoñez a 55 y/o F admitted on 04/26/20 for shortness of breath, possible covid. Chief Complaint: History of present illness: Ms. Ordoñez is a 55 year old F is to the ER for the third time the last 10 days of increasing shortness of breath. During the initial 2 visits work-up was inconsistent with findings that would require admission. Covid 19 test was negative. However symptoms have continued during the dyspnea on exertion/increasing cough, weakness. She has associated cough and shortness of breath aggravates during spells of cough. Initial work-up was consistent with bilateral chest infiltrates suggestive of COVID-19. Patient has been exposed to Covid recently. Repeat test sent out. Currently on 4 L oxygen. Patient was started on supplemental oxygen subsequently hospitalist service was consulted. At the time of my evaluation patient is alert but anxious. She was able to answer most the question and provide history as above. endorses to exposure to sick contact recently. Denies productive sputum, diarrhea but endorses to myalgia weakness but denies rash joint pain photophobia or neck stiffness. 04/27-patient doing well. Overnight increasingly labored breathing and desaturation. Staff concerned about worsening hypoxic story failure currently on 6 L oxygen. Continuing remdesivir. CT chest/echocardiogram today. Continue antibiotic coverage. Transition to noninvasive ventilation if worsening oxygenation Constitutional Vitals: Vital Signs Temp Pulse Resp BP Pulse Ox 96.9 F L 88 19 97/78 94 04/27/20 08:01 04/27/20 11:05 04/27/20 11:05 04/27/20 11:05 04/27/20 11:05 Period Temp Pulse Resp BP Sys/Lund Pulse Ox Last 24 Hr 96.7 F-98.2 F 67-95 10-23 83-116/61-90 87-98 Intake and Output 04/26/20 04/27/20 04/27/20 21:59 05:59 13:59 Intake Total 1500 760 300 Output Total 975 600 Balance 525 760 -300 Weight 76.385 kg On 6 L oxygen Anxious Labored breathing No lymphedema Intake & Output: Intake & Output 04/26/20 04/27/20 04/27/20 21:59 05:59 13:59 Intake Total 1500 760 300 Output Total 975 600 Balance 525 760 -300 Weight 76.385 kg Intake: IV 1500 550 Sodium Chloride 0.9% 1,000 ml @ 1000 500 mls/hr IV [facility] Rx#: [id number] Sodium Chloride 0.9% 500 ml @ 500 Wide Open IV [facility] Rx#: [id number] Zithromax 500 mg In Dextrose 5% 250 in Water 250 ml @ 250 mls/hr IV Q24H [facility] Rx#:[id number] Remdesivir 200 mg In Sodium 250 Chloride 0.9% 250 ml @ 500 mls/ hr IV ON[facility] ONE Rx#:[id number] Rocephin 2 gm In Dextrose 5% in 50 Water 50 ml @ 100 mls/hr IV Q24H [facility] Rx#:[id number] Oral 210 300 Output: Void Amount 375 600 Urine/Stool Mix 600 Other: Meal Egg salad cup Percent of Meal Consumed 75% Refused Feeding Ability Independent Independent Urine Appearance Clear Clear Urine Color Dark Yellow Bright Yellow Urine Odor Strong Stool Color Green Stool Consistency Liquid OBJ DATA Labs CBC & Chem 7: 04/27/20 05:05 04/27/20 05:05 Labs: Abnormal Lab Results 04/27/20 04/27/20 04/26/20 05:05 05:05 13:16 RBC 3.64 L Hgb 10.1 L Hct 31.6 L Neut % (Auto) Lymph % (Auto) Lymph # (Auto) Seg Neutrophils % 87 H Lymphocytes % 6 L Absolute Neutrophils ABG Methemoglobin 0.3 L Carboxyhemoglobin 4.9 H Total Hemoglobin 11.8 L Anion Gap 17.0 H Glucose 227 H Calcium 8.3 L GGT 160 H AST 44 H Alkaline Phosphatase 162 H Lactate Dehydrogenase 310 H NT-Pro-B Natriuret Pep Albumin 3.0 L Albumin/Globulin Ratio 0.9 L Triglycerides 158 H 04/26/20 04/26/20 13:16 13:16 RBC Hgb 11.8 L Hct 35.5 L Neut % (Auto) 89.2 H Lymph % (Auto) 8.5 L Lymph # (Auto) 0.85 L Seg Neutrophils % Lymphocytes % Absolute Neutrophils 8.91 H ABG Methemoglobin Carboxyhemoglobin Total Hemoglobin Anion Gap Glucose 248 H Calcium GGT AST 53 H Alkaline Phosphatase 191 H Lactate Dehydrogenase NT-Pro-B Natriuret Pep 514.3 H Albumin Albumin/Globulin Ratio Triglycerides Meds: Medications Acetaminophen (Tylenol) 650 mg PO Q4-6HP PRN; Protocol PRN Reason: Per Pain Protocol/Fever > 101 Acetaminophen/Butalbital/Caffeine (Fioricet) 2 tab PO Q4HP PRN PRN Reason: Headache Albuterol Sulfate (Ventolin) 2 puff INH .q4-6h PRN PRN Reason: cough, shortness of breath, wheezing Atorvastatin Calcium (Lipitor) 10 mg PO HS [facility] Last Admin: 04/26/20 21:20 Dose: 10 mg Documented by: Bisacodyl (Dulcolax) 10 mg RI Q2-3DAYS PRN PRN Reason: Constipation Budesonide (Pulmicort) 2 puff INH BID [facility] Last Admin: 04/27/20 07:55 Dose: Not Given Documented by: Citalopram Hydrobromide (Celexa) 20 mg PO QDAY [facility] Last Admin: 04/27/20 08:28 Dose: 20 mg Documented by: Cyclobenzaprine HCl (Flexeril) 10 mg PO DAILYP PRN PRN Reason: Muscle Spasm Dexamethasone (Decadron) 6 mg PO DAILY [facility] Last Admin: 04/27/20 08:27 Dose: 6 mg Documented by: Docusate Sodium (Colace) 100 mg PO BID [facility] Last Admin: 04/27/20 07:54 Dose: Not Given Documented by: Glipizide (Glucotrol) 5 mg PO QHS [facility] Last Admin: 04/26/20 21:20 Dose: 5 mg Documented by: Glipizide (Glucotrol) 10 mg PO QAM [facility] Last Admin: 04/27/20 08:28 Dose: 10 mg Documented by: Guaifenesin/Codeine Phosphate (Robitussin Ac) 10 ml PO Q4HP PRN PRN Reason: Cough Heparin Sodium (Porcine) (Heparin) 5,000 unit SQ Q12 [facility] Last Admin: 04/27/20 08:28 Dose: 5,000 unit Documented by: Potassium Chloride 40 meq/ (Dextrose) 520 mls @ 130 mls/hr IV UD PRN PRN Reason: K+ = or < 3.5 Acetaminophen (Ofirmev) 650 mg in 65 mls @ 130 mls/hr IV Q6HP PRN; Protocol PRN Reason: Per Pain Protocol/Fever > 101 Magnesium Sulfate (Magnesium Sulfate) 2 gm in 50 mls @ 50 mls/hr IV UD PRN PRN Reason: MG = or < 1.7 Ceftriaxone Sodium 2 gm/ (Dextrose) 50 mls @ 100 mls/hr IV Q24H [facility]; Protocol Last Admin: 04/27/20 09:34 Dose: 100 mls/hr Documented by: Azithromycin 500 mg/ Dextrose 250 mls @ 250 mls/hr IV Q24H [facility]; Protocol Stop: 04/28/20 20:59 Last Admin: 04/27/20 09:34 Dose: 250 mls/hr Documented by: REMDESIVIR 100 mg/ Sodium (Chloride) 250 mls @ 500 mls/hr IV Q24H [facility] Stop: 04/30/20 11:29 Last Admin: 04/27/20 11:17 Dose: 500 mls/hr Documented by: Insulin Glargine (Lantus) 25 unit SQ DAILY [facility] Iron Carb/Multivit/[place]/Folic Acid (Multivitamin W/Minerals) 1 tab PO DAILY [facility] Last Admin: 04/27/20 08:27 Dose: 1 tab Documented by: Levothyroxine Sodium (Synthroid) 100 mcg PO QAMAC [facility] Last Admin: 04/27/20 08:27 Dose: 100 mcg Documented by: Melatonin (Melatonin 3mg Tablet) 3 mg PO HSP PRN PRN Reason: Insomnia Metformin HCl (Glucophage) 500 mg PO QID [facility] Last Admin: 04/27/20 08:28 Dose: 500 mg Documented by: Non-Formulary Medication (Low Dose Naltrexone) 2 mg PO QDAY [facility] Last Admin: 04/27/20 08:32 Dose: Not Given Documented by: Ondansetron HCl (Zofran Odt) 4 mg SL Q4-6HP PRN; Protocol PRN Reason: Nausea And Vomiting Ondansetron HCl (Zofran) 4 mg IV Q4-6HP PRN; Protocol PRN Reason: Nausea And Vomiting Insulin Degludec Pen 25 dose SUB-Q QDAY [facility] Last Admin: 04/27/20 08:33 Dose: Not Given Documented by: Polyethylene Glycol (Miralax) 17 gm PO DAILYP PRN PRN Reason: Constipation Potassium Chloride (Klor-Con) 40 meq PO DAILYP PRN PRN Reason: K+ < 3.5 Prednisone (Prednisone) 40 mg PO QAM [facility] Last Admin: 04/27/20 08:28 Dose: 40 mg Documented by: Pregabalin (Lyrica) 50 mg PO BID [facility] Last Admin: 04/27/20 08:27 Dose: 50 mg Documented by: Senna/Docusate Sodium (Senna Plus Tablet) 1 tab PO HS [facility] Last Admin: 04/26/20 21:02 Dose: Not Given Documented by: Sodium Chloride (Saline Flush) 10 ml IV Q8 [facility] Last Admin: 04/27/20 05:39 Dose: 10 ml Documented by: Sumatriptan Succinate (Imitrex) 25 mg PO DAILYP PRN PRN Reason: migraine headache Tiotropium [place] (Spiriva) 18 mcg INH DAILY [facility] Last Admin: 04/27/20 08:33 Dose: Not Given Documented by: Vitamin B Complex (Vitamin B Complex) 1 cap PO DAILY [facility] Last Admin: 04/27/20 08:28 Dose: 1 cap Documented by: ABG Interpretation ABG results: 04/26/20 13:16 ABG Methemoglobin 0.3 L VBG pH 7.41 VBG pCO2 40.0 VBG pO2 58 VBG HCO3 25.0 VBG Total CO2 26.2 VBG O2 Saturation 85.7 VBG Base Excess 1 A/P Narrative A/P Narrative: * Covid 19 PNA-bilateral multifocal. Continue remdesivir empirically. Await COVID-19/CK/ferritin/CRP/follow serial liver enzymes. On empiric antibiotic coverage de-escalate based on further testing * Acute hypoxic resp failure currently on 6 L oxygen. Transition to noninvasive ventilation if worsening oxygenation. Secondary to Covid pneumonia. However rule out alternate etiology. Check echocardiogram/CT. intermittent prone ventilation * DMII-basal prandial insulin,CC diet * Neuropathy continue Lyrica * Anxiety disorder continue citalopram * Hyperlipidemia continue statin * Hypothyroid contraction * History of migraine -no acute flare. * Limited code * Prophylaxis heparin Plan * Transition to noninvasive ventilation if worsening respiratory status * Continue remdesivir * ABG/interval CT chest/echo * Prone ventilation * Pre-existing medical condition management home meds * Worsening respiratory status, [place] 2 score 15 indicating high risk mortality Critical care time spent on management of hypoxic respiratory failure/Covid pneumonia management in excess of 35 minutes Time Spent With Patient Time: Total time spent is greater than 50% in coordination of care (as documented) at patient's floor/unit and/or counseling patient:
[2020-04-27 12:23] LABS: INR 1.1 (0.9-1.1); Prothrombin Time 14.4 sec (11.9-14.5)
[2020-04-27 12:39] LABS: Ferritin 349.9 ng/mL (13.0-150.0)
[2020-04-27] MEDS ORDERED: ALBUTEROL SULFATE 200 PUFF INHALER INH PRN (14:45)
--- NOTE | 2020-04-27 17:54 | Cat Scan Report ---
CLINICAL INFORMATION: Shortness of breath COMPARISON: None. TECHNIQUE: ml of Isovue-370 were injected intravenously. Using SmartPrep to maximize pulmonary artery opacification, .625mm helical slices were obtained from the lung apices through the lung bases. Following reconstruction, 2.5 mm sagittal, coronal, and axial reformations were processed. The exam was reviewed at mediastinal, lung, and bone windows. The exam was performed using radiation dose optimization techniques including, but not limited to, automated exposure control, adjustment of the mA and/or kV according to patient size and use of iterative reconstruction technique. FINDINGS: Mediastinal windows show the pulmonary arteries are normal diameter and well-opacified - no evidence of embolus. Thoracic aorta is also normal diameter with minimal diffuse intimal wall thickening. There is no adenopathy in the mediastinal, hilar or axillary regions. The heart is borderline enlarged with slight right ventricular dilatation and fat replacement of the right ventricular wall suggesting right ventricular dysplasia. Esophagus is grossly normal. The thyroid is unremarkable. Pulmonary parenchymal windows show large patchy groundglass infiltrates in a peribronchovascular distribution throughout both upper and right middle lobes. There is also moderate patchy groundglass infiltrates throughout both posterior lower lobes. There are no effusions. Bones and soft tissues the chest wall show no abnormality. There are two sets of spinal cord stimulator electrodes: superiorly from T1 to T4 and more inferiorly T8-T10. Both are properly positioned in the posterior epidural space - no evidence of electrode or wire breakage. Images should the superior abdomen mild hepatic enlargement (it is incompletely imaged. The visualized kidneys and adrenal glands spleen and pancreas abdominal aorta are normal. IMPRESSION: 1. No evidence of pulmonary embolus 2. Large patchy groundglass infiltrates in both upper and right middle lobes. Moderate groundglass infiltrates scattered within the posterior aspects of both lower lobes. There are no effusions. Findings would be compatible Covid pneumonia. 3. 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 Please correlate with any history of intermittent CHF and cardiac arrhythmia. 4. Mild hepatomegaly with diffuse fatty infiltration. Interpreted and Authenticated by: Marvin Frazier 04/27/20
[2020-04-27] MEDS: ATORVASTATIN 10 MG TABLET PO SCH (21:21)
[2020-04-27] MEDS: SENNOSIDES/DOCUSATE SODIUM 1 TAB TABLET PO SCH (21:22)
[2020-04-28] MEDS: 0.9 % SODIUM CHLORIDE 10 ML SYRINGE IV SCH ×3 (05:58→20:55)
--- NOTE | 2020-04-28 07:23 | XRay Report ---
INDICATION: Interval Change TECHNIQUE: AP portable upright chest x-ray COMPARISON: Chest CT scan dated 04/27/2020. Chest x-rays dated 04/26/2020 and 04/22/2020 FINDINGS: Lungs:Bilateral pulmonary parenchymal infiltrates. Findings appear stable since 04/26/2020 and 04/27/2020. No new parenchymal consolidation. No parenchymal mass. As described these infiltrates are nonspecific but may be consistent with Covid pneumonia Heart, vascular:No significant cardiomegaly. Pulmonary vascularity is normal. No pulmonary edema or pulmonary congestion Mediastinum, naima:No mediastinal widening. No hilar mass Pleura:No pleural fluid. No pleural-based mass or calcification Skeletal:Negative. Incidental note is made of spinal cord stimulator leads in the thoracic spinal canal IMPRESSION: 1. Bilateral pulmonary parenchymal infiltrates 2. No significant interval change since 04/26/2020 Interpreted and Authenticated by: Marvin Sue 04/28/20
[2020-04-28 07:28] LABS: ALT/SGPT 25 U/L (<40); AST/SGOT 39 U/L (<32); Albumin 2.9 gm/dL (3.2-5.2); Albumin/Globulin Ratio 0.9 (1.0-2.3); Alkaline Phosphatase 157 U/L (39-117); Bilirubin,Direct < 0.2 mg/dL (<0.3); Bilirubin,Total 0.2 mg/dL (0.1-1.0); Blood Urea Nitrogen 15 mg/dL (6-20); Carbon Dioxide 24 mmol/L (22-30); Chloride 103 mmol/L (96-108); Globulin 3.2 gm/dL (2.2-3.7); Glomerular Filtration Rate 97; Glucose 94 mg/dL (70-105); Lactate Dehydrogenase 326 U/L (135-225); Phosphorous 2.5 mg/dL (2.5-4.5); Triglycerides 256 mg/dL (<150); Uric Acid 4.3 mg/dL (2.5-8.0)
[2020-04-28] MEDS: LEVOTHYROXINE 100 MCG TABLET PO SCH (07:52)
[2020-04-28 08:41] LABS: Band Neutrophils % 2 % (0-10); Hematocrit 32.7 % (36.0-48.0); Hemoglobin 10.7 g/dL (12.0-15.0); Lymphocytes % 22 % (15-49); Mean Cell Volume 86.5 fL (80.0-100.0); Mean Corpuscular HGB Conc 32.7 g/dL (31.0-36.0); Mean Platelet Volume 9.1 fL (7.4-10.4); Monocytes % (Manual) 6 % (1-12); Platelet Count 443 K/mcL (140-440); Platelet Estimate NORMAL (Normal); RBC 3.78 M/mcL (4.00-5.20); RBC Morphology NORMAL (Normal); Red Cell Distribution Width 13.8 % (11.5-14.5); Segmented Neutrophils % 70 % (38-78); WBC 7.8 K/mcL (4.5-11.0)
[2020-04-28] MEDS ORDERED: INSULIN GLARGINE, HUMAN 1 UNIT/0.01 ML SQ SCH (09:00)
[2020-04-28] MEDS: TIOTROPIUM BROMIDE 18 MCG INHALANT INH SCH (09:06)
[2020-04-28] MEDS: BUDESONIDE 1 PUFF INHALER INH SCH ×2 (09:07→20:57)
[2020-04-28] MEDS: cefTRIAXone 2 GM in DEXTROSE 5% IN WATER 50 ML IV SCH (09:08)
[2020-04-28] MEDS: PREGABALIN 25 MG CAPSULE PO SCH ×2 (09:08→20:55)
[2020-04-28] MEDS: glipiZIDE 5 MG TABLET PO SCH (09:09)
[2020-04-28] MEDS: DEXAMETHASONE 4 MG TABLET PO SCH (09:09)
[2020-04-28] MEDS: CITALOPRAM 20 MG TABLET PO SCH (09:09)
[2020-04-28] MEDS: HEPARIN 5,000 UNIT/ML VIAL SQ SCH ×2 (09:09→20:55)
[2020-04-28] MEDS: predniSONE 20 MG TABLET PO SCH (09:09)
[2020-04-28] MEDS: MULTIVIT,THER IRON,CA,FA & MIN 1 TABLET PO SCH (09:09)
[2020-04-28] MEDS: DOCUSATE SODIUM 100 MG CAPSULE PO SCH ×2 (09:10→20:29)
[2020-04-28] MEDS: metFORMIN 500 MG TAB.XL.24H PO SCH ×4 (09:11→20:48)
--- NOTE | 2020-04-28 09:40 | Internal Med Progress Note ---
SUBJECTIVE Subjective Patient information: Note initiated : 04/28/20 at 9:36 am Service Date, if different from initiated Date: [] Patient: Gena Ordoñez a 55 y/o F admitted on 04/26/20 for shortness of breath, possible covid. Chief Complaint: History of present illness: Ms. Ordoñez is a 55 year old F is to the ER for the third time the last 10 days of increasing shortness of breath. During the initial 2 visits work-up was inconsistent with findings that would require admission. Covid 19 test was negative. However symptoms have continued during the dyspnea on exertion/increasing cough, weakness. She has associated cough and shortness of breath aggravates during spells of cough. Initial work-up was consistent with bilateral chest infiltrates suggestive of COVID-19. Patient has been exposed to Covid recently. Repeat test sent out. Currently on 4 L oxygen. Patient was started on supplemental oxygen subsequently hospitalist service was consulted. At the time of my evaluation patient is alert but anxious. She was able to answer most the question and provide history as above. endorses to exposure to sick contact recently. Denies productive sputum, diarrhea but endorses to myalgia weakness but denies rash joint pain photophobia or neck stiffness. 04/27-patient doing well. Overnight increasingly labored breathing and desaturation. Staff concerned about worsening hypoxic story failure currently on 6 L oxygen. Continuing remdesivir. CT chest/echocardiogram today. Continue antibiotic coverage. Transition to noninvasive ventilation if worsening oxygenation 04/28-patient continue remdesivir. No overnight events. No concerns per staff. Now on 4 L oxygen. Ongoing self prone ventilation. Feels a lot better. Improved dyspnea. In good telemetry events. White count 7.8. Maintain COVID- 19 precautions Constitutional Vitals: Vital Signs Temp Pulse Resp BP Pulse Ox 96.9 F L 74 12 104/69 94 04/28/20 08:04 04/28/20 04:01 04/28/20 08:04 04/28/20 08:04 04/28/20 08:04 Period Temp Pulse Resp BP Sys/Lund Pulse Ox Last 24 Hr 96.5 F-98.6 F 70-89 11-31 97-115/64-84 91-99 Intake and Output 04/27/20 04/28/20 04/28/20 21:59 05:59 13:59 Intake Total 550 400 Output Total 1050 1000 Balance -500 -600 Weight 77.201 kg Minimally labored breathing alert oriented No anxiety Nondistended abdomen No telemetry events Intake & Output: Intake & Output 04/27/20 04/28/20 04/28/20 21:59 05:59 13:59 Intake Total 550 400 Output Total 1050 1000 Balance -500 -600 Weight 77.201 kg Intake: IV 250 Remdesivir 100 mg In Sodium 250 Chloride 0.9% 250 ml @ 500 mls/ hr IV Q24H [facility] Rx#:[id number] Oral 300 400 Output: Void Amount 1050 1000 Other: Meal Dinner Percent of Meal Consumed 100% Feeding Ability Independent Urine Appearance Clear Clear Urine Color Dark Yellow Bright Yellow Urine Odor Normal Stool Size Small Stool Color Green Stool Consistency Liquid Loose # Bowel Movements 1 OBJ DATA Labs CBC & Chem 7: 04/28/20 05:10 04/28/20 05:10 Labs: Abnormal Lab Results 04/28/20 04/28/20 04/27/20 05:10 05:10 11:30 RBC 3.78 L Hgb 10.7 L Hct 32.7 L Plt Count 443 H Neut % (Auto) Lymph % (Auto) Lymph # (Auto) Seg Neutrophils % Lymphocytes % Absolute Neutrophils ABG Methemoglobin Carboxyhemoglobin Total Hemoglobin Anion Gap Glucose Calcium Ferritin 349.9 H GGT 160 H AST 39 H Alkaline Phosphatase 157 H Lactate Dehydrogenase 326 H NT-Pro-B Natriuret Pep Albumin 2.9 L Albumin/Globulin Ratio 0.9 L Triglycerides 256 H 04/27/20 04/27/20 04/26/20 05:05 05:05 13:16 RBC 3.64 L Hgb 10.1 L Hct 31.6 L Plt Count Neut % (Auto) Lymph % (Auto) Lymph # (Auto) Seg Neutrophils % 87 H Lymphocytes % 6 L Absolute Neutrophils ABG Methemoglobin 0.3 L Carboxyhemoglobin 4.9 H Total Hemoglobin 11.8 L Anion Gap 17.0 H Glucose 227 H Calcium 8.3 L Ferritin GGT 160 H AST 44 H Alkaline Phosphatase 162 H Lactate Dehydrogenase 310 H NT-Pro-B Natriuret Pep Albumin 3.0 L Albumin/Globulin Ratio 0.9 L Triglycerides 158 H 04/26/20 04/26/20 13:16 13:16 RBC Hgb 11.8 L Hct 35.5 L Plt Count Neut % (Auto) 89.2 H Lymph % (Auto) 8.5 L Lymph # (Auto) 0.85 L Seg Neutrophils % Lymphocytes % Absolute Neutrophils 8.91 H ABG Methemoglobin Carboxyhemoglobin Total Hemoglobin Anion Gap Glucose 248 H Calcium Ferritin GGT AST 53 H Alkaline Phosphatase 191 H Lactate Dehydrogenase NT-Pro-B Natriuret Pep 514.3 H Albumin Albumin/Globulin Ratio Triglycerides Meds: Medications Acetaminophen (Tylenol) 650 mg PO Q4-6HP PRN; Protocol PRN Reason: Per Pain Protocol/Fever > 101 Acetaminophen/Butalbital/Caffeine (Fioricet) 2 tab PO Q4HP PRN PRN Reason: Headache Albuterol Sulfate (Ventolin) 2 puff INH Q4-6HP PRN PRN Reason: cough, shortness of breath, wheezing Atorvastatin Calcium (Lipitor) 10 mg PO HS [facility] Last Admin: 04/27/20 21:21 Dose: 10 mg Documented by: Bisacodyl (Dulcolax) 10 mg UT Q2-3DAYS PRN PRN Reason: Constipation Budesonide (Pulmicort) 2 puff INH BID [facility] Last Admin: 04/28/20 09:07 Dose: 2 puff Documented by: Citalopram Hydrobromide (Celexa) 20 mg PO QDAY [facility] Last Admin: 04/28/20 09:09 Dose: 20 mg Documented by: Cyclobenzaprine HCl (Flexeril) 10 mg PO DAILYP PRN PRN Reason: Muscle Spasm Dexamethasone (Decadron) 6 mg PO DAILY [facility] Last Admin: 04/28/20 09:09 Dose: 6 mg Documented by: Docusate Sodium (Colace) 100 mg PO BID [facility] Last Admin: 04/28/20 09:10 Dose: Not Given Documented by: Glipizide (Glucotrol) 5 mg PO QHS [facility] Last Admin: 04/27/20 21:21 Dose: 5 mg Documented by: Glipizide (Glucotrol) 10 mg PO QAM [facility] Last Admin: 04/28/20 09:09 Dose: 10 mg Documented by: Guaifenesin/Codeine Phosphate (Robitussin Ac) 10 ml PO Q4HP PRN PRN Reason: Cough Heparin Sodium (Porcine) (Heparin) 5,000 unit SQ Q12 [facility] Last Admin: 04/28/20 09:09 Dose: 5,000 unit Documented by: Potassium Chloride 40 meq/ (Dextrose) 520 mls @ 130 mls/hr IV UD PRN PRN Reason: K+ = or < 3.5 Acetaminophen (Ofirmev) 650 mg in 65 mls @ 130 mls/hr IV Q6HP PRN; Protocol PRN Reason: Per Pain Protocol/Fever > 101 Magnesium Sulfate (Magnesium Sulfate) 2 gm in 50 mls @ 50 mls/hr IV UD PRN PRN Reason: MG = or < 1.7 Ceftriaxone Sodium 2 gm/ (Dextrose) 50 mls @ 100 mls/hr IV Q24H [facility]; Protocol Last Admin: 04/28/20 09:08 Dose: 100 mls/hr Documented by: Azithromycin 500 mg/ Dextrose 250 mls @ 250 mls/hr IV Q24H [facility]; Protocol Stop: 04/28/20 20:59 Last Infusion: 04/27/20 10:35 Dose: Infused Documented by: REMDESIVIR 100 mg/ Sodium (Chloride) 250 mls @ 500 mls/hr IV Q24H [facility] Stop: 04/30/20 11:29 Last Infusion: 04/27/20 20:16 Dose: Infused Documented by: Iron Carb/Multivit/[place]/Folic Acid (Multivitamin W/Minerals) 1 tab PO DAILY [facility] Last Admin: 04/28/20 09:09 Dose: 1 tab Documented by: Levothyroxine Sodium (Synthroid) 100 mcg PO QAMAC [facility] Last Admin: 04/28/20 07:52 Dose: 100 mcg Documented by: Melatonin (Melatonin 3mg Tablet) 3 mg PO HSP PRN PRN Reason: Insomnia Metformin HCl (Glucophage) 500 mg PO QID [facility] Last Admin: 04/28/20 09:11 Dose: Not Given Documented by: Non-Formulary Medication (Low Dose Naltrexone) 2 mg PO QDAY [facility] Last Admin: 04/27/20 08:32 Dose: Not Given Documented by: Ondansetron HCl (Zofran Odt) 4 mg SL Q4-6HP PRN; Protocol PRN Reason: Nausea And Vomiting Ondansetron HCl (Zofran) 4 mg IV Q4-6HP PRN; Protocol PRN Reason: Nausea And Vomiting Insulin Degludec 100 (Unit/Ml Pen) 25 dose SUB-Q QDAY [facility] Last Admin: 04/28/20 09:08 Dose: 25 dose Documented by: Polyethylene Glycol (Miralax) 17 gm PO DAILYP PRN PRN Reason: Constipation Potassium Chloride (Klor-Con) 40 meq PO DAILYP PRN PRN Reason: K+ < 3.5 Prednisone (Prednisone) 40 mg PO QAM [facility] Last Admin: 04/28/20 09:09 Dose: 40 mg Documented by: Pregabalin (Lyrica) 50 mg PO BID [facility] Last Admin: 04/28/20 09:08 Dose: 50 mg Documented by: Senna/Docusate Sodium (Senna Plus Tablet) 1 tab PO HS [facility] Last Admin: 04/27/20 21:22 Dose: Not Given Documented by: Sodium Chloride (Saline Flush) 10 ml IV Q8 [facility] Last Admin: 04/28/20 05:58 Dose: 10 ml Documented by: Sumatriptan Succinate (Imitrex) 25 mg PO DAILYP PRN PRN Reason: migraine headache Tiotropium [place] (Spiriva) 18 mcg INH DAILY [facility] Last Admin: 04/28/20 09:06 Dose: 1 tab Documented by: Vitamin B Complex (Vitamin B Complex) 1 cap PO DAILY [facility] Last Admin: 04/27/20 08:28 Dose: 1 cap Documented by: ABG Interpretation ABG results: 04/26/20 13:16 ABG Methemoglobin 0.3 L VBG pH 7.41 VBG pCO2 40.0 VBG pO2 58 VBG HCO3 25.0 VBG Total CO2 26.2 VBG O2 Saturation 85.7 VBG Base Excess 1 A/P Narrative A/P Narrative: * Covid 19 PNA-bilateral multifocal. Clinical improvement noted on remdesivir. Continue prone ventilation. ALT stable. Ferritin 349. PTT INR within normal limits. Interval chest imaging bilateral pulmonary parenchymal infiltrates. * Acute hypoxic resp failure currently clinically improving now on 4 L oxygen. Nasal cannula O2. Continue prone ventilation * DMII-basal prandial insulin,CC diet * Neuropathy continue Lyrica * Anxiety disorder continue citalopram * Hyperlipidemia continue statin * Hypothyroid contraction * History of migraine -no acute flare. * Limited code * Prophylaxis heparin Plan * Wean oxygen as tolerated * Continue remdesivir, monitor liver function * Prone ventilation * Pre-existing medical condition management home meds * Improved prognosis based on [place] 2 score Critical care time spent on management of hypoxic respiratory failure/Covid pneumonia management in excess of 35 minutes Time Spent With Patient Time: Total time spent is greater than 50% in coordination of care (as documented) at patient's floor/unit and/or counseling patient:
[2020-04-28] MEDS: AZITHROMYCIN 500 MG in DEXTROSE 5% IN WATER 250 ML IV SCH (09:48)
[2020-04-28] MEDS: VITAMIN B COMPLEX 1 CAPSULE PO SCH (09:48)
[2020-04-28] MEDS: NALTREXONE PO SCH (10:30)
[2020-04-28] MEDS ORDERED: DEXTROSE 31 GM ORAL.SUSP PO PRN (10:52)
[2020-04-28] MEDS ORDERED: DEXTROSE 50% 50 ML VIAL IV PRN (10:52)
[2020-04-28] MEDS: BUTALB/ACETAMINOPHEN/CAFFEINE 1 TABLET PO PRN (11:02)
[2020-04-28] MEDS: REMDESIVIR 100 MG in 0.9 % SODIUM CHLORIDE 250 ML IV SCH (11:10)
[2020-04-28] MEDS: INSULIN LISPRO 1 UNIT/0.01 ML UNIT SQ SCH ×3 (11:20→20:57)
[2020-04-28] MEDS: SENNOSIDES/DOCUSATE SODIUM 1 TAB TABLET PO SCH (20:29)
[2020-04-28] MEDS: ATORVASTATIN 10 MG TABLET PO SCH (20:55)
[2020-04-29] MEDS: 0.9 % SODIUM CHLORIDE 10 ML SYRINGE IV SCH ×3 (05:51→20:05)
[2020-04-29] MEDS: predniSONE 20 MG TABLET PO SCH (08:14)
[2020-04-29] MEDS: CITALOPRAM 20 MG TABLET PO SCH (08:14)
[2020-04-29] MEDS: LEVOTHYROXINE 100 MCG TABLET PO SCH (08:14)
[2020-04-29] MEDS: HEPARIN 5,000 UNIT/ML VIAL SQ SCH ×2 (08:14→20:05)
[2020-04-29] MEDS: PREGABALIN 25 MG CAPSULE PO SCH ×2 (08:15→20:06)
[2020-04-29] MEDS: TIOTROPIUM BROMIDE 18 MCG INHALANT INH SCH (08:15)
[2020-04-29] MEDS: MULTIVIT,THER IRON,CA,FA & MIN 1 TABLET PO SCH (08:15)
[2020-04-29] MEDS: DOCUSATE SODIUM 100 MG CAPSULE PO SCH ×2 (08:15→20:06)
[2020-04-29] MEDS: VITAMIN B COMPLEX 1 CAPSULE PO SCH (08:15)
[2020-04-29] MEDS: metFORMIN 500 MG TAB.XL.24H PO SCH ×3 (08:16→20:05)
[2020-04-29] MEDS: NALTREXONE PO SCH (08:16)
[2020-04-29] MEDS: DEXAMETHASONE 4 MG TABLET PO SCH (08:16)
[2020-04-29 08:37] LABS: ALT/SGPT 27 U/L (<40); AST/SGOT 30 U/L (<32); Albumin 3.2 gm/dL (3.2-5.2); Albumin/Globulin Ratio 1.1 (1.0-2.3); Alkaline Phosphatase 159 U/L (39-117); Bilirubin,Direct < 0.2 mg/dL (<0.3); Bilirubin,Total 0.3 mg/dL (0.1-1.0); Blood Urea Nitrogen 13 mg/dL (6-20); Calcium 8.8 mg/dL (8.6-10.4); Carbon Dioxide 25 mmol/L (22-30); Chloride 102 mmol/L (96-108); Globulin 2.8 gm/dL (2.2-3.7); Glomerular Filtration Rate 102; Glucose 69 mg/dL (70-105); Lactate Dehydrogenase 300 U/L (135-225); Phosphorous 4.5 mg/dL (2.5-4.5); Triglycerides 250 mg/dL (<150); Uric Acid 4.6 mg/dL (2.5-8.0)
[2020-04-29] MEDS: BUDESONIDE 1 PUFF INHALER INH SCH ×2 (08:39→20:05)
[2020-04-29] MEDS: INSULIN LISPRO 1 UNIT/0.01 ML UNIT SQ SCH ×4 (08:39→20:09)
--- NOTE | 2020-04-29 09:07 | Internal Med Progress Note ---
SUBJECTIVE Subjective Patient information: Note initiated : 04/29/20 at 9:05 am Service Date, if different from initiated Date: [] Patient: Gena Ordoñez a 55 y/o F admitted on 04/26/20 for shortness of breath, possible covid. History of present illness: Ms. Ordoñez is a 55 year old F is to the ER for the third time the last 10 days of increasing shortness of breath. During the initial 2 visits work-up was inconsistent with findings that would require admission. Covid 19 test was negative. However symptoms have continued during the dyspnea on exertion/increasing cough, weakness. She has associated cough and shortness of breath aggravates during spells of cough. Initial work-up was consistent with bilateral chest infiltrates suggestive of COVID-19. Patient has been exposed to Covid recently. Repeat test sent out. Currently on 4 L oxygen. Patient was started on supplemental oxygen subsequently hospitalist service was consulted. At the time of my evaluation patient is alert but anxious. She was able to answer most the question and provide history as above. endorses to exposure to sick contact recently. Denies productive sputum, diarrhea but endorses to myalgia weakness but denies rash joint pain photophobia or neck stiffness. 04/27-patient doing well. Overnight increasingly labored breathing and desaturation. Staff concerned about worsening hypoxic story failure currently on 6 L oxygen. Continuing remdesivir. CT chest/echocardiogram today. Continue antibiotic coverage. Transition to noninvasive ventilation if worsening oxygenation 04/28-patient continue remdesivir. No overnight events. No concerns per staff. Now on 4 L oxygen. Ongoing self prone ventilation. Feels a lot better. Improved dyspnea. In good telemetry events. White count 7.8. Maintain COVID- 19 precautions 04/29 -patient clinically improved. Currently on 1 to 3 L oxygen. On going prone ventilation. Remdesivir day /. Continue dexamethasone. Feels a lot better. Will likely discharge in 24 hours on home oxygen if continues to improve clinically. No overnight events. Stable LFTs. COVID-19 test pending. Constitutional Vitals: Vital Signs Temp Pulse Resp BP Pulse Ox 98.1 F 55 L 15 110/84 97 04/29/20 08:01 04/29/20 06:01 04/29/20 08:01 04/29/20 08:01 04/29/20 08:01 Period Temp Pulse Resp BP Sys/Lund Pulse Ox Last 24 Hr 95.9 F-98.1 F 55-96 5-27 96-124/70-91 90-100 Intake and Output 04/28/20 04/29/20 04/29/20 21:59 05:59 13:59 Intake Total 1400 Output Total 1650 425 Balance -250 -425 Weight 76.459 kg Alert oriented Nonlabored breathing On 3 L oxygen No anxiety No telemetry events Intake & Output: Intake & Output 04/28/20 04/29/20 04/29/20 21:59 05:59 13:59 Intake Total 1400 Output Total 1650 425 Balance -250 -425 Weight 76.459 kg Intake: Oral 1400 Output: Urine Catheter Amount 550 Void Amount 1100 425 Other: Meal Dinner Percent of Meal Consumed 100% Feeding Ability Independent Urine Appearance Clear Clear Urine Color Pale Bright Yellow Urine Odor Normal OBJ DATA Labs CBC & Chem 7: 04/28/20 05:10 04/29/20 04:46 Labs: Abnormal Lab Results 04/29/20 04/28/20 04/28/20 04:46 05:10 05:10 RBC 3.78 L Hgb 10.7 L Hct 32.7 L Plt Count 443 H Neut % (Auto) Lymph % (Auto) Lymph # (Auto) Seg Neutrophils % Lymphocytes % Absolute Neutrophils ABG Methemoglobin Carboxyhemoglobin Total Hemoglobin Anion Gap Glucose 69 L Calcium Ferritin GGT 144 H 160 H AST 39 H Alkaline Phosphatase 159 H 157 H Lactate Dehydrogenase 300 H 326 H NT-Pro-B Natriuret Pep Albumin 2.9 L Albumin/Globulin Ratio 0.9 L Triglycerides 250 H 256 H 04/27/20 04/27/20 04/27/20 11:30 05:05 05:05 RBC 3.64 L Hgb 10.1 L Hct 31.6 L Plt Count Neut % (Auto) Lymph % (Auto) Lymph # (Auto) Seg Neutrophils % 87 H Lymphocytes % 6 L Absolute Neutrophils ABG Methemoglobin Carboxyhemoglobin Total Hemoglobin Anion Gap 17.0 H Glucose 227 H Calcium 8.3 L Ferritin 349.9 H GGT 160 H AST 44 H Alkaline Phosphatase 162 H Lactate Dehydrogenase 310 H NT-Pro-B Natriuret Pep Albumin 3.0 L Albumin/Globulin Ratio 0.9 L Triglycerides 158 H 04/26/20 04/26/20 04/26/20 13:16 13:16 13:16 RBC Hgb 11.8 L Hct 35.5 L Plt Count Neut % (Auto) 89.2 H Lymph % (Auto) 8.5 L Lymph # (Auto) 0.85 L Seg Neutrophils % Lymphocytes % Absolute Neutrophils 8.91 H ABG Methemoglobin 0.3 L Carboxyhemoglobin 4.9 H Total Hemoglobin 11.8 L Anion Gap Glucose 248 H Calcium Ferritin GGT AST 53 H Alkaline Phosphatase 191 H Lactate Dehydrogenase NT-Pro-B Natriuret Pep 514.3 H Albumin Albumin/Globulin Ratio Triglycerides Meds: Medications Acetaminophen (Tylenol) 650 mg PO Q4-6HP PRN; Protocol PRN Reason: Per Pain Protocol/Fever > 101 Acetaminophen/Butalbital/Caffeine (Fioricet) 2 tab PO Q4HP PRN PRN Reason: Headache Last Admin: 04/28/20 11:02 Dose: 2 tab Documented by: Albuterol Sulfate (Ventolin) 2 puff INH Q4-6HP PRN PRN Reason: cough, shortness of breath, wheezing Atorvastatin Calcium (Lipitor) 10 mg PO HS [facility] Last Admin: 04/28/20 20:55 Dose: 10 mg Documented by: Bisacodyl (Dulcolax) 10 mg WA Q2-3DAYS PRN PRN Reason: Constipation Budesonide (Pulmicort) 2 puff INH BID [facility] Last Admin: 04/29/20 08:39 Dose: 2 puff Documented by: Citalopram Hydrobromide (Celexa) 20 mg PO QDAY [facility] Last Admin: 04/29/20 08:14 Dose: 20 mg Documented by: Cyclobenzaprine HCl (Flexeril) 10 mg PO DAILYP PRN PRN Reason: Muscle Spasm Dexamethasone (Decadron) 6 mg PO DAILY [facility] Last Admin: 04/29/20 08:16 Dose: 6 mg Documented by: Dextrose (Dextrose 50%) 0 ml IV UD PRN PRN Reason: Hypoglycemia Diagnostic Test (Pha) (Accu-Chek) 1 each FS ACHS [facility] Last Admin: 04/29/20 08:39 Dose: 1 each Documented by: Docusate Sodium (Colace) 100 mg PO BID [facility] Last Admin: 04/29/20 08:15 Dose: Not Given Documented by: Glucose (Insta-Glucose) 15 gm PO PRN PRN PRN Reason: Hypoglycemia Guaifenesin/Codeine Phosphate (Robitussin Ac) 10 ml PO Q4HP PRN PRN Reason: Cough Heparin Sodium (Porcine) (Heparin) 5,000 unit SQ Q12 [facility] Last Admin: 04/29/20 08:14 Dose: 5,000 unit Documented by: Potassium Chloride 40 meq/ (Dextrose) 520 mls @ 130 mls/hr IV UD PRN PRN Reason: K+ = or < 3.5 Acetaminophen (Ofirmev) 650 mg in 65 mls @ 130 mls/hr IV Q6HP PRN; Protocol PRN Reason: Per Pain Protocol/Fever > 101 Magnesium Sulfate (Magnesium Sulfate) 2 gm in 50 mls @ 50 mls/hr IV UD PRN PRN Reason: MG = or < 1.7 REMDESIVIR 100 mg/ Sodium (Chloride) 250 mls @ 500 mls/hr IV Q24H [facility] Stop: 04/30/20 11:29 Last Infusion: 04/28/20 11:40 Dose: Infused Documented by: Insulin Human Lispro (Humalog) 0 unit SQ ACHS [facility]; Protocol Last Admin: 04/29/20 08:39 Dose: Not Given Documented by: Iron Carb/Multivit/[place]/Folic Acid (Multivitamin W/Minerals) 1 tab PO DAILY [facility] Last Admin: 04/29/20 08:15 Dose: 1 tab Documented by: Levothyroxine Sodium (Synthroid) 100 mcg PO QAMAC [facility] Last Admin: 04/29/20 08:14 Dose: 100 mcg Documented by: Melatonin (Melatonin 3mg Tablet) 3 mg PO HSP PRN PRN Reason: Insomnia Metformin HCl (Glucophage) 500 mg PO QID [facility] Last Admin: 04/29/20 08:16 Dose: Not Given Documented by: Non-Formulary Medication (Low Dose Naltrexone) 2 mg PO QDAY [facility] Last Admin: 04/29/20 08:16 Dose: Not Given Documented by: Ondansetron HCl (Zofran Odt) 4 mg SL Q4-6HP PRN; Protocol PRN Reason: Nausea And Vomiting Ondansetron HCl (Zofran) 4 mg IV Q4-6HP PRN; Protocol PRN Reason: Nausea And Vomiting Insulin Degludec 100 (Unit/Ml Pen) 25 dose SUB-Q QDAY [facility] Last Admin: 04/29/20 08:16 Dose: 25 dose Documented by: Polyethylene Glycol (Miralax) 17 gm PO DAILYP PRN PRN Reason: Constipation Potassium Chloride (Klor-Con) 40 meq PO DAILYP PRN PRN Reason: K+ < 3.5 Prednisone (Prednisone) 40 mg PO QAM [facility] Last Admin: 04/29/20 08:14 Dose: 40 mg Documented by: Pregabalin (Lyrica) 50 mg PO BID [facility] Last Admin: 04/29/20 08:15 Dose: 50 mg Documented by: Senna/Docusate Sodium (Senna Plus Tablet) 1 tab PO HS [facility] Last Admin: 04/28/20 20:29 Dose: Not Given Documented by: Sodium Chloride (Saline Flush) 10 ml IV Q8 [facility] Last Admin: 04/29/20 05:51 Dose: 10 ml Documented by: Sumatriptan Succinate (Imitrex) 25 mg PO DAILYP PRN PRN Reason: migraine headache Tiotropium Mccammon (Spiriva) 18 mcg INH DAILY [facility] Last Admin: 04/29/20 08:15 Dose: 18 mcg Documented by: Vitamin B Complex (Vitamin B Complex) 1 cap PO DAILY [facility] Last Admin: 04/29/20 08:15 Dose: 1 cap Documented by: ABG Interpretation ABG results: 04/26/20 13:16 ABG Methemoglobin 0.3 L VBG pH 7.41 VBG pCO2 40.0 VBG pO2 58 VBG HCO3 25.0 VBG Total CO2 26.2 VBG O2 Saturation 85.7 VBG Base Excess 1 A/P Narrative A/P Narrative: * Covid 19 PNA-bilateral multifocal. Clinical improvement noted on remdesivir day 4/. Continue prone ventilation as tolerated. ALT stable. Ferritin 349. PTT INR within normal limits. Interval chest imaging bilateral pulmonary parenchymal infiltrates. Continue weaning oxygen as tolerated. Possible discharge in 24 to 48 hours. * Acute hypoxic resp failure currently clinically improving now on 4 L oxygen. Nasal cannula O2. Continue prone ventilation * DMII-basal prandial insulin,CC diet * Neuropathy continue Lyrica * Anxiety disorder continue citalopram * Hyperlipidemia continue statin * Hypothyroid contraction * History of migraine -no acute flare. * Limited code * Prophylaxis heparin Plan * Wean oxygen as tolerated * Continue remdesivir, monitor liver function * Prone ventilation as tolerated * Pre-existing medical condition management home meds * Anticipate discharge in 24 to 48 hours pending clinical improvement Critical care time spent on management of hypoxic respiratory failure/Covid pneumonia management in excess of 35 minutes Time Spent With Patient Time: Total time spent is greater than 50% in coordination of care (as documented) at patient's floor/unit and/or counseling patient:
[2020-04-29 09:18] LABS: Hemoglobin 10.6 g/dL (12.0-15.0); Lymphocytes % 24 % (15-49); Mean Cell Volume 86.2 fL (80.0-100.0); Mean Corpuscular HGB Conc 32.1 g/dL (31.0-36.0); Mean Platelet Volume 9.3 fL (7.4-10.4); Metamyelocytes % 1 %; Monocytes % (Manual) 8 % (1-12); Myelocytes % 1 %; Platelet Count 495 K/mcL (140-440); Platelet Estimate INCREASED (Normal); RBC 3.83 M/mcL (4.00-5.20); RBC Morphology NORMAL (Normal); Red Cell Distribution Width 13.6 % (11.5-14.5); Segmented Neutrophils % 66 % (38-78); WBC 7.2 K/mcL (4.5-11.0)
[2020-04-29] MEDS: REMDESIVIR 100 MG in 0.9 % SODIUM CHLORIDE 250 ML IV SCH (11:37)
[2020-04-29] MEDS: BUTALB/ACETAMINOPHEN/CAFFEINE 1 TABLET PO PRN (11:38)
[2020-04-29] MEDS: SENNOSIDES/DOCUSATE SODIUM 1 TAB TABLET PO SCH (20:06)
[2020-04-29] MEDS: ATORVASTATIN 10 MG TABLET PO SCH (20:06)
[2020-04-30] MEDS: BUTALB/ACETAMINOPHEN/CAFFEINE 1 TABLET PO PRN (05:02)
[2020-04-30] MEDS: 0.9 % SODIUM CHLORIDE 10 ML SYRINGE IV SCH ×2 (05:03→13:31)
[2020-04-30 06:56] LABS: ALT/SGPT 26 U/L (<40); AST/SGOT 34 U/L (<32); Albumin 3.4 gm/dL (3.2-5.2); Albumin/Globulin Ratio 1.1 (1.0-2.3); Alkaline Phosphatase 161 U/L (39-117); Bilirubin,Direct < 0.2 mg/dL (<0.3); Bilirubin,Total 0.3 mg/dL (0.1-1.0); Blood Urea Nitrogen 13 mg/dL (6-20); Calcium 9.3 mg/dL (8.6-10.4); Carbon Dioxide 25 mmol/L (22-30); Chloride 101 mmol/L (96-108); Globulin 3.2 gm/dL (2.2-3.7); Glomerular Filtration Rate 97; Glucose 76 mg/dL (70-105); Lactate Dehydrogenase 329 U/L (135-225); Phosphorous 4.5 mg/dL (2.5-4.5); Triglycerides 353 mg/dL (<150); Uric Acid 4.8 mg/dL (2.5-8.0)
[2020-04-30] MEDS: INSULIN LISPRO 1 UNIT/0.01 ML UNIT SQ SCH ×2 (07:56→11:21)
[2020-04-30] MEDS: LEVOTHYROXINE 100 MCG TABLET PO SCH (07:58)
[2020-04-30 08:25] LABS: Eosinophils % (Manual) 1 % (0-7); Hematocrit 35.8 % (36.0-48.0); Hemoglobin 11.5 g/dL (12.0-15.0); Lymphocytes % 28 % (15-49); Mean Cell Volume 85.9 fL (80.0-100.0); Mean Corpuscular HGB Conc 32.1 g/dL (31.0-36.0); Metamyelocytes % 1 %; Monocytes % (Manual) 9 % (1-12); Myelocytes % 1 %; Platelet Count 550 K/mcL (140-440); Platelet Estimate INCREASED (Normal); RBC 4.17 M/mcL (4.00-5.20); RBC Morphology NORMAL (Normal); Reactive Lymphocytes 2 % (0-2); Red Cell Distribution Width 13.2 % (11.5-14.5); Segmented Neutrophils % 58 % (38-78); WBC 9.3 K/mcL (4.5-11.0)
[2020-04-30] MEDS: HEPARIN 5,000 UNIT/ML VIAL SQ SCH (10:01)
[2020-04-30] MEDS: DEXAMETHASONE 4 MG TABLET PO SCH (10:01)
[2020-04-30] MEDS: TIOTROPIUM BROMIDE 18 MCG INHALANT INH SCH (10:01)
[2020-04-30] MEDS: VITAMIN B COMPLEX 1 CAPSULE PO SCH (10:01)
[2020-04-30] MEDS: metFORMIN 500 MG TAB.XL.24H PO SCH ×2 (10:02→13:31)
[2020-04-30] MEDS: CITALOPRAM 20 MG TABLET PO SCH (10:02)
[2020-04-30] MEDS: predniSONE 20 MG TABLET PO SCH (10:03)
[2020-04-30] MEDS: PREGABALIN 25 MG CAPSULE PO SCH (10:03)
[2020-04-30] MEDS: MULTIVIT,THER IRON,CA,FA & MIN 1 TABLET PO SCH (10:04)
[2020-04-30] MEDS: NALTREXONE PO SCH (10:04)
[2020-04-30] MEDS: DOCUSATE SODIUM 100 MG CAPSULE PO SCH (10:06)
[2020-04-30] MEDS: BUDESONIDE 1 PUFF INHALER INH SCH (10:07)
[2020-04-30] MEDS: REMDESIVIR 100 MG in 0.9 % SODIUM CHLORIDE 250 ML IV SCH (11:15)
--- NOTE | 2020-04-30 13:30 | Discharge Summary ---
Discharge Provider Provider Patient information: Note initiated : 04/30/20 at 1:26 pm Service Date, if different from initiated Date: [] Patient: Gena Ordoñez a 55 y/o F admitted on 04/26/20 for shortness of breath, possible covid. Discharge diagnosis * Covid 19 PNA-bilateral multifocal. Clinical improvement noted on remdesivir, completed 5-day course. Improving hypoxia now on 2 to 3 L oxygen. Discharging home with self quarantine/continued home oxygen. Follow-up PCP in 2 weeks. * Acute hypoxic resp failure currently clinically improving now on 3 L oxygen. Discharging with home oxygen * DMII-basal prandial insulin,CC diet * Neuropathy continue Lyrica * Anxiety disorder continue citalopram * Hyperlipidemia continue statin * Hypothyroid contraction * History of migraine -no acute flare. * Brief hospital course History of present illness: Ms. Ordoñez is a 55 year old F is to the ER for the third time the last 10 days of increasing shortness of breath. During the initial 2 visits work-up was inconsistent with findings that would require admission. Covid 19 test was negative. However symptoms have continued during the dyspnea on exertion/increasing cough, weakness. She has associated cough and shortness of breath aggravates during spells of cough. Initial work-up was consistent with bilateral chest infiltrates suggestive of COVID-19. Patient has been exposed to Covid recently. Repeat test sent out. Currently on 4 L oxygen. Patient was started on supplemental oxygen subsequently hospitalist service was consulted. At the time of my evaluation patient is alert but anxious. She was able to answer most the question and provide history as above. endorses to exposure to sick contact recently. Denies productive sputum, diarrhea but endorses to myalgia weakness but denies rash joint pain photophobia or neck stiffness. 04/27-patient doing well. Overnight increasingly labored breathing and desaturation. Staff concerned about worsening hypoxic story failure currently on 6 L oxygen. Continuing remdesivir. CT chest/echocardiogram today. Continue antibiotic coverage. Transition to noninvasive ventilation if worsening oxygenation 04/28-patient continue remdesivir. No overnight events. No concerns per staff. Now on 4 L oxygen. Ongoing self prone ventilation. Feels a lot better. Improved dyspnea. In good telemetry events. White count 7.8. Maintain COVID- 19 precautions 04/29 -patient clinically improved. Currently on 1 to 3 L oxygen. On going prone ventilation. Remdesivir day 4/5. Continue dexamethasone. Feels a lot better. Will likely discharge in 24 hours on home oxygen if continues to improve clinically. No overnight events. Stable LFTs. COVID-19 test pending. 04/30-patient doing well. Completed 5 days of remdesivir. Continue additional 5 days oral dexamethasone. Home oxygen 2 to 3 L and wean as tolerated. Follow- up PCP in 2 weeks Date of admission: 04/26/20 18:42 Discharge date: 04/30/20 Primary care physician: Kelton Esquivel PA-C Consults: 04/26/20 Consult to Physician [CONS] Stat Comment: Consulting Provider: Reynaldo Nobles Reason For Exam: Physician to Consult Discharge Meds Discharge Medications Home Medications glipizide 5 mg tablet 5 mg PO QHS tab 05/22/19 [History Confirmed 04/26/20 Last Taken 04/25/20 21:00] glipizide 5 mg tablet 10 mg PO QAM tab 05/22/19 [History Confirmed 04/26/20 Last Taken 04/26/20 09:00] metformin 500 mg tablet,extended release 24 hr 500 mg PO QID #120 tab 06/18/19 [Rx Confirmed 04/26/20 Last Taken 04/26/20 09:00] cyclobenzaprine 10 mg tablet See Rx Instructions PO .QD PRN #240 tab 08/13/19 [Rx Confirmed 04/26/20 Last Taken 04/25/20] sumatriptan succinate 25 mg tablet 25 mg PO Q2-4H PRN #30 tab 08/13/19 [Rx Confirmed 04/26/20 Last Taken 02/09/20] pen needle, diabetic 31 gauge x 3/16" #100 unknown measurement unit code: not specified 10/24/19 [Rx Confirmed 04/26/20 Last Taken 11/13/19] vvjdmxau-wox-egec-FA-lutein 1 each PO DAILY 11/07/19 [History Confirmed 04/26/20 Last Taken 04/26/20 09:00] vitamin B complex 1 each PO DAILY 11/07/19 [History Confirmed 04/26/20 Last Taken 04/26/20 09:00] atorvastatin 1 tab PO HS 11/14/19 [History Confirmed 04/26/20 Last Taken 04/25/20 21:00] insulin degludec 100 unit/mL (3 mL) subcutaneous pen 25 unit SUB-Q QDAY #15 ml 01/24/20 [Rx Confirmed 04/26/20 Last Taken 04/25/20 21:00] levothyroxine 100 mcg tablet See Rx Instructions .ROUTE .COMPLEX #90 unknown measurement unit code: tablet 02/06/20 [Rx Confirmed 04/26/20 Last Taken 04/26/20 08:00] Low Dose Naltrexone 2 mg PO QDAY #30 each 02/28/20 [Rx Confirmed 04/26/20 Last Taken 04/25/20 21:00] citalopram 20 mg tablet 20 mg PO QDAY #60 tab 02/28/20 [Rx Confirmed 04/26/20 Last Taken 04/25/20] pregabalin 50 mg capsule 50 mg PO BID #60 cap 03/18/20 [Rx Confirmed 04/26/20 Last Taken 04/26/20 09:00] albuterol sulfate 90 mcg/actuation aerosol inhaler 2 puff INHALATION .q4-6h PRN #8.5 g 04/22/20 [Rx Confirmed 04/26/20 Last Taken 04/26/20] prednisone 20 mg tablet 40 mg PO QAM 5 Days #10 tab 04/22/20 [Rx Confirmed 04/26/20 Last Taken 04/26/20 09:00] dexamethasone 6 mg PO DAILY 5 Days #8 tab 04/30/20 [Rx Last Taken Unknown] COURSE Hospital Course Hospital course: . Discharge diagnosis: . Time Spent with Patient Time attestation: Total time spent providing and/or coordinating discharge services: EXAM Constitutional Vitals: Temp Pulse Resp BP Pulse Ox 98 F 73 22 106/72 91 04/30/20 12:01 04/30/20 12:01 04/30/20 12:01 04/30/20 12:01 04/30/20 12:01 Discharge Data Data Completed and Pending Labs on day of discharge: Labs from last 24 hours 04/30/20 04/30/20 04/26/20 04:52 04:52 14:16 WBC 9.3 RBC 4.17 Hgb 11.5 L Hct 35.8 L MCV 85.9 MCH 27.6 MCHC 32.1 RDW 13.2 Plt Count 550 H MPV 9.0 Seg Neutrophils % 58 Band Neutrophils % Pending Lymphocytes % 28 Monocytes % (Manual) 9 Eosinophils % (Manual) 1 Metamyelocytes % 1 Myelocytes % 1 Reactive Lymphocytes 2 Platelet Estimate Increased A RBC Morphology Normal Sodium 141 Potassium 3.2 L Chloride 101 Carbon Dioxide 25 Anion Gap 15.0 BUN 13 Creatinine 0.7 GFR Calculation 97 Glucose 76 Uric Acid 4.8 Calcium 9.3 Phosphorus 4.5 Magnesium 2.0 Total Bilirubin 0.3 Direct Bilirubin < 0.2 GGT 159 H AST 34 H ALT 26 Alkaline Phosphatase 161 H Lactate Dehydrogenase 329 H Total Protein 6.6 Albumin 3.4 Globulin 3.2 Albumin/Globulin Ratio 1.1 Triglycerides 353 H SARS-CoV-2 (PCR) Detected A Discharge Plan Patient/Caregiver Discharge Instructions Activity: increase activity as tolerated Diet: Regular Diet and Consistent Carbohydrate Instructions: COVID-19, Using Oxygen at Home (GEN), Hypoxia (GEN), Pneumonia (GEN) Activity Restrictions/Additional Instructions: Home oxygen at 3 L and wean as tolerated. Continue dexamethasone for additional 5 days Follow-up PCP in 2 weeks. Return to ER if worsening shortness of breath fever chills Maintain Covid precautions/self quarantine This discharge packet is provided to you to help keep you informed about your care. We want to ensure you get everything you need when you go home. You will also be receiving a call from us in a few days to follow up with you and see how you are doing since your discharge. This gives us a chance to listen to any concerns you maybe experiencing since you were discharged or any additional needs you may have, as well as providing us feedback on your care experience. We strive to always provide excellent care and thank you for your feedback and for choosing [facility]. Prescriptions: New dexamethasone 4 mg Tablet 6 mg PO DAILY 5 Days Qty: 8 RF: 0 Continued metformin 500 mg tablet extended release 24 hr 500 mg PO QID Qty: 120 RF: 0 (DME) pen needle, diabetic [Unifine Pentips Plus] 31 gauge x 3/16" needle See Rx Instructions .ROUTE .COMPLEX Qty: 100 RF: 3 levothyroxine 100 mcg tablet See Rx Instructions .ROUTE .COMPLEX Qty: 90 RF: 1 pregabalin [Lyrica] 50 mg capsule 50 mg PO BID Qty: 60 RF: 1 glipizide 5 mg tablet 10 mg PO QAM RF: 0 glipizide 5 mg tablet 5 mg PO QHS RF: 0 cyclobenzaprine 10 mg tablet See Rx Instructions PO .QD PRN (Reason: muscle spasm) Qty: 240 RF: 1 sumatriptan succinate [Imitrex] 25 mg tablet 25 mg PO Q2-4H PRN (Reason: migraine headache) Qty: 30 RF: 0 insulin degludec 100 unit/mL (3 mL) insulin pen 25 unit SUB-Q QDAY Qty: 15 RF: 3 citalopram 20 mg tablet 20 mg PO QDAY Qty: 60 RF: 0 Low Dose Naltrexone 2 mg PO QDAY Qty: 30 RF: 1 prednisone 20 mg tablet 40 mg PO QAM 5 Days Qty: 10 RF: 0 albuterol sulfate [ProAir HFA] 90 mcg/actuation HFA aerosol inhaler 2 puff INHALATION .q4-6h PRN (Reason: cough, shortness of breath, wheezing) Qty: 8.5 RF: 0 vitamin B complex 1 EACH capsule 1 each PO DAILY RF: 0 kgxnhchi-nsp-garv-FA-lutein 1 EACH tablet 1 each PO DAILY RF: 0 atorvastatin 10 mg tablet 1 tab PO HS RF: 0 Follow Up Plan Follow up with: Kelton Esquivel PA-C [Primary Care Provider] - 05/07/20 2:30 pm (Please check in at 2:15 pm) Patient Disposition: Home, Self-Care Prognosis: Fair Rehab Potential: Fair I certify that the patient requires SNF services: No Overall status at discharge: patient is progressing back to baseline Discharge Orders: Discharge Order (Routine); Ordered 04/30/20 Ordered By: Reynaldo Nobles
== END 2020-04-30 14:20 | disposition home or self-care (01) | DRG 177 ==
LOC: ED 12:53 → ICU 18:42
PROVIDERS: ADMIT Internal Medicine; ATTEND Internal Medicine